=== PATIENT | male | born 1965 | race Caucasian/White ===

== ENCOUNTER 2019-09-07 09:29 | Observation (INO) ==
--- OUTSIDE RECORDS SUMMARY | 2019-09-07 09:36 | External Medical Summary | Continuity of Care Document ---
:1965 Author Name Christiano Lees, Provider Address Unavailable Unavailable , Care Team Providers Name Role Phone Unavailable Unavailable Unavailable Problems Active medical history not documented Allergies and Adverse Reactions Allergy history not documented Medications Medications not documented Procedures Procedures not documented Immunizations Immunizations not documented Plan of Treatment Planned Observations Planned Goals not documented Results No Known Results Results not documented
[2019-09-07 10:56] LABS: Influenza B virus by PCR Neg for Influ B (Neg)
[2019-09-07] MEDS ORDERED: OSELTAMIVIR PHOSPHATE 75 MG CAP PO STA (11:30)
[2019-09-07 11:54] LABS: Basophils # (auto) 0.02 K/uL (0-0.2); Basophils % (auto) 0.3 %; Eosinophils # (auto) 0.08 K/uL (0-0.5); Hematocrit (blood only) 41.1 % (42-52); Hemoglobin 13.9 g/dL (14.0-18.0); Immature Granulocytes # (auto) 0.06 K/uL (0.00-0.02); Immature Granulocytes % (auto) 0.8 %; Lymphocytes # (auto) 0.78 K/uL (1.2-3.4); Lymphocytes % (auto) 10.1 %; Mean Corpuscular Hemoglobin 29.9 pg (25-34); Mean Corpuscular Hgb Conc 33.8 g/dL (32-36); Mean Corpuscular Volume 88.4 fL (80-100); Mean Platelet Volume 11.2 fL (7.4-10.4); Monocytes # (auto) 1.06 K/uL (0.11-0.59); Monocytes % (auto) 13.7 %; Neutrophils # (auto) 5.72 K/uL (1.4-6.5); Neutrophils % (auto) 74.1 %; Platelet Count 196 K/uL (130-400); RDW Coefficient of Variation 13.6 % (11.5-14.5); RDW Standard Deviation 43.8 fL (36.4-46.3); Red Blood Count 4.65 M/uL (4.7-6.1); White Blood Count 7.72 K/uL (4.8-10.8)
--- NOTE | 2019-09-07 12:08 | CT Scan Report ---
HEAD CT NONCONTRAST CT DOSE: 537.48 mGy.cm HISTORY: syncope/head injury eval for bleed TECHNIQUE: Multiaxial CT images of the head were performed without the use of intravenous contrast. A utomated exposure control was utilized for this study. A dose lowering technique was utilized adheri ng to the principles of ALARA. Comparison: None. Findings: The paranasal sinuses and mastoid air cells are clear. The calvarium and skull base are int act. The ventricles and sulci are within normal limits. There is no mass, hematoma, midline shift, or acute infarct. Impression: No acute intracranial abnormality. ACT 112: Negative or not required by law. Electronically signed by: Berny Saeed M.D. 09/07/2019 12:07 PM
[2019-09-07 12:09] LABS: Alanine Aminotransferase 32 U/L (12-78); Albumin Level 3.4 gm/dl (3.4-5.0); Aspartate Aminotransferase 15 U/L (15-37); BUN Creatinine Ratio 13.8 (10-20); Blood Urea Nitrogen 15 mg/dl (7-18); Calcium 8.9 mg/dl (8.5-10.1); Carbon Dioxide 26 mmol/L (21-32); Chloride 107 mmol/L (98-107); Creatinine Clr Calc Pharmacy 96.7 ml/min; Est GFR (African American) 85.6; Est GFR (Non-African American) 73.8; Glucose 101 mg/dl (70-99); Potassium 3.7 mmol/L (3.5-5.1); Sodium 138 mmol/L (136-145)
[2019-09-07 12:11] LABS: Partial Thromboplastin Ratio 0.9; Partial Thromboplastin Time 24.4 Seconds (21.0-31.0); Prothrombin Time 10.5 Seconds (9.0-12.0)
[2019-09-07 12:20] LABS: Albumin Globulin Ratio 0.9 (0.9-2); Alkaline Phosphatase 67 U/L (45-117); Bilirubin,Total 0.3 mg/dl (0.2-1); Globulin 3.7 gm/dl (2.5-4.0); Thyroid Stimulating Hormone 0.377 uIu/ml (0.300-4.500); Total Protein 7.1 gm/dl (6.4-8.2); Troponin I < 0.015 ng/ml (0-0.045)
--- NOTE | 2019-09-07 13:34 | XRay Report ---
XR chest 2V PA/lateral HISTORY: 54 years-old Male ocugh eval for pna acute cough COMPARISON: None available TECHNIQUE: PA and lateral views of the chest FINDINGS: Cardiac silhouette is upper limits of normal in size. No pneumothorax, pleural effusion, focal airspa ce consolidation or overt pulmonary edema. Bones of the chest appear grossly intact. Stimulator leads are noted overlying the mid thoracic spine. IMPRESSION: No acute process. ACT 112: Negative or not required by law. The above report was generated using voice recognition software. It may contain grammatical, syntax o r spelling errors. Electronically signed by: Donato Kennedy M.D. 09/07/2019 1:32 PM
--- NOTE | 2019-09-07 14:52 | History & Physical Report ---
Date of Service September 07, 2019 Assessment & Plan (1) Syncope: -Admit to telemetry -Patient presenting from home for evaluation of syncopal event -Episode was witnessed by , no seizure-like activity reported -Head CT negative for acute findings -Labs unremarkable -Tested positive for influenza A -Suspect likely due to dehydration from influenza A -Initial troponin negative, continue to cycle cardiac enzymes -Supportive care with IVF -Monitor on telemetry -Orthostatic BPs (2) Influenza A: -No signs of pneumonia on CXR -Start Tamiflu -Supportive care with IVF (3) Acute electrocardiogram changes: (4) Bradycardia: -EKG shows an unchanged RBBB with increased conduction delay in leads III and aVF -Initial troponin negative, continue to cycle cardiac enzymes -Follow-up EKG in the morning -Patient had a brief episode of bradycardia in the 30s while having blood work drawn, likely vasovagal response; continue to monitor on telemetry (5) Hypertension: -BP controlled -Continue lisinopril however hold HCTZ due to dehydration and while receiving IVF (6) High cholesterol: -Continue statin and fenofibrate (7) DVT prophylaxis: -SCDs, ambulate History of Present Illness Chief Complaint: Syncope Primary Care Provider: Hai Garrison 54 year old male who presented to the ED for evaluation after having a syncopal event at home. Patient reports that 3 days ago he developed body aches, chills, and cough. He suspected he had a fever however did not take his temperature. Early this morning, patient reports he was sitting on the edge of the couch when he started to feel nauseous. He reports that next thing he knew he woke up on the floor. is at the bedside and witnessed the syncopal event. She reports that he was unconscious for about 1 minute. There is no seizure-like activity reported, no bowel or bladder incontinence or tongue biting. Patient reports his chest has been sore with coughing recently. Denies shortness of breath. No abdominal pain, vomiting, diarrhea. No urinary symptoms. In the ED, patient tested positive for influenza A. While having blood work obtained, patient was noted to have a brief episode of bradycardia in the 30s. Patient had some associated nausea however no syncopal event. Labs are unremarkable. EKG shows chronic RBBB with increased conduction delay in leads III and aVF. Initial troponin is negative. Patient is hemodynamically stable. He was given a dose of oral Tamiflu. Allergies Allergy/AdvReac Type Severity Reaction Status Date / Time No Known Allergies Allergy Unverified 09/07/19 10:33 Home Medications Home Medications Medication Instructions Recorded Confirmed Type aspirin [Aspir-81] 81 mg PO QDD 09/07/19 09/07/19 History atorvastatin 10 mg PO QDD 09/07/19 09/07/19 History cholecalciferol (vitamin D3) 5,000 unit PO QAM 09/07/19 09/07/19 History [Vitamin D3] fenofibrate 54 mg PO QDD 09/07/19 09/07/19 History fluticasone propionate [Flonase 2 spray INTRANASAL DAILY 09/07/19 09/07/19 His tory Allergy Relief] lisinopril-hydrochlorothiazide 1 tab PO QAM 09/07/19 09/07/19 History multivitamin 1 tab PO QAM 09/07/19 09/07/19 History Past Med/Surg History Medical History High cholesterol Hypertension Surgical History No significant past surgical history Family History Father Myocardial infarction Heart disease Social History Preferred Language: [place] Communication Ability: Effective 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 Beliefs That Will Affect Care: None Current Living Situation: Spouse Other Information That Helps Us Care for You: No Feels Safe at Home: Yes Safety Concerns: Feels Safe At This Time Smoking Status: Never smoker Hx Alcohol Use: No Hx Substance Use: No Review of Systems Review of Systems: ROS per HPI, all other systems reviewed and negative Physical Exam Constitutional: WD/WN, vitals as above Eyes: PERRL, conjunctivae normal, anicteric sclerae ENMT: external ear and nose normal, oropharynx normal Respiratory: normal respiratory effort, lungs clear to auscultation Cardiovascular: Rate/Rhythm: regular rate and regular rhythm Vessels: normal peripheral pulses Extremities: no edema Gastrointestinal (Abdomen): normal bowel sounds, soft, nontender, no hepatosplenomegaly Musculoskeletal: no cyanosis or clubbing, extremities motor strength 5/5 Head/Neck/Chest: + head abnormal to inspection (Superficial abrasion noted to right temporal region) Skin: no rashes, warm and dry Neurologic: PERRL, EOMI, accommodation nl, no face palsy, no dysarthria Psychiatric: A+Ox3, euthymic affect Results & Data Vital Signs (Past 12 Hours) Vital Signs Temp Pulse Resp BP Pulse Ox 09/07/19 10:30 84 14 128/71 94 09/07/19 10:14 94 09/07/19 10:00 82 18 136/74 94 09/07/19 09:39 93 H 22 139/100 94 09/07/19 09:37 37 C 90 19 139/100 94 Laboratory Results Short CBC 09/07/19 Range/Units 11:34 WBC 7.72 (4.8-10.8) K/uL Hgb 13.9 L (14.0-18.0) g/dL Hct 41.1 L (42-52) % Plt Count 196 (130-400) K/uL BMP 09/07/19 11:34 Sodium 138 Potassium 3.7 Chloride 107 Carbon Dioxide 26 BUN 15 Creatinine 1.11 Glucose 101 H Calcium 8.9 Cardiac Enzymes 09/07/19 Range/Units 11:34 Troponin I < 0.015 (0-0.045) ng/ml Liver Function 09/07/19 Range/Units 11:34 Total Bilirubin 0.3 (0.2-1) mg/dl AST 15 (15-37) U/L ALT 32 (12-78) U/L Alkaline Phosphatase 67 (45-117) U/L Albumin 3.4 (3.4-5.0) gm/dl Diagnostic Findings CXR IMPRESSION: No acute process. Head CT Impression: No acute intracranial abnormality. Code Status & VTE Plan VTE Prophylaxis Plan VTE Prophylaxis will be ordered: Yes Supervising Physician Co-Signing Physician Notes Pt was seen and examined. Agreed with Daphne HOFFMAN exam, assessment and plan. 54 yo M with PMH of HTN, dyslipidemia who presented to the ED for evaluation after having a syncopal event at home. Pt said that he has been feeling very achy and chills for the past 3 days. said that last night pt was coughing, This morning his cough improves, but felt nauseated; then next thing he found himself on the floor. said that the syncopal episode seems to last 1 minutes. Denies any chest pain, palpitation or SOB before or after the syncopal episode. In the ER influenza type A PCR positive. CT chest showed no acute intracranial abnormality. He recently had a negative stress test 2 months ago. Will monitor closely in tele. If symptoms reoccur, will get additional testing. Continue Tamiflu 75mg BID for 5 days. MD Dory (1) Syncope Syncope type: unspecified Qualified Code(s): R55 - Syncope and collapse
--- NOTE | 2019-09-07 16:31 | Emergency Department Note ---
Entered by Corina Garcia acting as a scribe for History of Present Illness General Chief complaint: Syncope Time Seen by Provider: 09/07/19 09:35 Source: patient and family () History of Present Illness Onset (ago): hour(s) (just prior to arrival) Location: head (general) Pain Consistency: + other (episode) Quality: + other (syncope ) Associated symptoms: + chest pain (tightness), + cough (dry), + nausea/vomiting (positive nausea; negative vomiting ) and + other (positive dizziness; negative seizure activity; positive warmth; negative abdominal pain; negative diarrhea); no diaphoresis, no fever/chills and no shortness of breath The patient is a 54 year old male who presents to the Emergency Room with complaints of an episode of syncope that occurred just prior to arrival. The patient states that he was sitting on the couch when he felt a wave of nausea and dizziness. He states that he remembers asking his for a bucket but does not remember anything after this. Per the patient's , she went to get the p atient a bucket, heard a thump, and found him on the floor with blood on his forehead. The patient's states that the patient fell forward off the couch, hitting his head on the carpeted floor. The patient's states that the patient had loss of consciousness for approximately 1 minute before waking up. The patient's denies seizure activity during this episode. The patient states that he has had a persistent dry cough for 2 days. He states that over the past day he has had chest tightness with this cough, but denies sweating and shortness of breath. The patient states that his last episode of this was this morning but states that this was not during his episode of syncope. The patient states that he felt warm this morning, but denies chills. He denies abdominal pain, vomiting, and diarrhea. The patient states that he took Robitussin, Cefdinir, and 40mg of Prednisone yesterday from his who has had a cough and fever for the past week. The patient states that he has a family history of heart disease, stating that his father had approximately 7 MIs starting in his 50s. The patient reports a personal history of high cholesterol. He denies being on blood thinners. His tetanus is up-to-date. Home Medications Home Medications Medication Instructions Recorded Confirmed Type aspirin [Aspir-81] 81 mg PO QDD 09/07/19 09/07/19 History atorvastatin 10 mg PO QDD 09/07/19 09/07/19 History cholecalciferol (vitamin D3) 5,000 unit PO QAM 09/07/19 09/07/19 History [Vitamin D3] fenofibrate 54 mg PO QDD 09/07/19 09/07/19 History fluticasone propionate [Flonase 2 spray INTRANASAL DAILY 09/07/19 09/07/19 History Allergy Relief] lisinopril-hydrochlorothiazide 1 tab PO QAM 09/07/19 09/07/19 History multivitamin 1 tab PO QAM 09/07/19 09/07/19 History Allergies Allergy/AdvReac Type Severity Reaction Status Date / Time No Known Allergies Allergy Unverified 09/07/19 10:33 Past Med/Surg History Medical History High cholesterol Hypertension Surgical History No significant past surgical history Family History Father Myocardial infarction Heart disease Social History Preferred Language: Malian Communication Ability: Effective [employer]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 and A total of 10 systems reviewed and were otherwise negative Physical Exam Vital Signs Vital Signs - 24 hr 09/07/19 09:37 09/07/19 09:39 09/07/19 09:54 Temperature 37 C Temperature Source Oral Pulse Rate - Lying 91 H Pulse Rate - Sitting 92 H Pulse Rate - Standing 94 H Pulse Rate 90 93 H Pulse Rate from SpO2 Sensor 93 H Pulse Rhythm Regular Pulse Strength Normal Respiratory Rate 19 22 Respiratory Effort / Characteristics Non-Labored Spontaneous Respiratory Depth Normal Respiratory Pattern Regular Blood Pressure - Lying 142/85 H Blood Pressure - Sitting 125/92 Blood Pressure- Standing 139/100 Blood Pressure 139/100 139/100 Blood Pressure Mean 113 106 Blood Pressure Position Standing Pulse Oximetry 94 94 Oxygen Delivery Method Room Air Sepsis Recent Fever Within 48 Hours Yes Sepsis New/Unexplained Change in Mental Status No Sepsis Action Taken by Nursing No Action Required 09/07/19 10:00 09/07/19 10:14 09/07/19 10:30 Temperature Temperature Source Pulse Rate - Lying Pulse Rate - Sitting Pulse Rate - Standing Pulse Rate 82 84 Pulse Rate from SpO2 Sensor 81 83 Pulse Rhythm Pulse Strength Respiratory Rate 18 14 Respiratory Effort / Characteristics Respiratory Depth Respiratory Pattern Blood Pressure - Lying Blood Pressure - Sitting Blood Pressure- Standing Blood Pressure 136/74 128/71 Blood Pressure Mean 104 91 Blood Pressure Position Pulse Oximetry 94 94 94 Oxygen Delivery Method Room Air Sepsis Recent Fever Within 48 Hours Sepsis New/Unexplained Change in Mental Status Sepsis Action Taken by Nursing 09/07/19 11:00 09/07/19 11:20 09/07/19 11:30 Temperature Temperature Source Pulse Rate - Lying Pulse Rate - Sitting Pulse Rate - Standing Pulse Rate 76 68 79 Pulse Rate from SpO2 Sensor 76 68 79 Pulse Rhythm Pulse Strength Respiratory Rate 19 17 18 Respiratory Effort / Characteristics Respiratory Depth Respiratory Pattern Blood Pressure - Lying Blood Pressure - Sitting Blood Pressure- Standing Blood Pressure 128/75 101/66 122/82 Blood Pressure Mean 103 74 89 Blood Pressure Position Pulse Oximetry 94 95 93 Oxygen Delivery Method Sepsis Recent Fever Within 48 Hours Sepsis New/Unexplained Change in Mental Status Sepsis Action Taken by Nursing 09/07/19 12:24 09/07/19 12:30 09/07/19 16:10 Temperature Temperature Source Pulse Rate - Lying Pulse Rate - Sitting Pulse Rate - Standing Pulse Rate 79 82 Pulse Rate from SpO2 Sensor 81 82 Pulse Rhythm Pulse Strength Respiratory Rate 20 19 Respiratory Effort / Characteristics Respiratory Depth Respiratory Pattern Blood Pressure - Lying Blood Pressure - Sitting Blood Pressure- Standing Blood Pressure 135/80 133/79 Blood Pressure Mean 93 91 Blood Pressure Position Pulse Oximetry 96 96 Oxygen Delivery Method Room Air Sepsis Recent Fever Within 48 Hours Sepsis New/Unexplained Change in Mental Status Sepsis Action Taken by Nursing Constitutional: Vital signs reviewed. Head: Abrasion to the right forehead. No bony depression. Eyes: Pupils are equal round reactive to light. Conjunctiva are noninjected. ENT: Pharynx is clear without erythema or exudate. Mucous membranes are moist. No midline tenderness to C spine No carotid bruits. Respiratory: Clear to auscultation bilaterally. Breath sounds are equal bilaterally. Cardiovascular: Regular rate and rhythm. No rubs or gallops. GI: Soft, nondistended and nontender. Bowel sounds are present. Musculoskeletal: No peripheral edema. No lower extremity tenderness. Integumentary: No cyanosis. Neurological: The patient is awake and alert. Cranial nerves II-XII are intact. Motor is 5 out of 5 all extremities. Sensation is intact to light touch all extremities. Normal speech. No pronator drift. No limb ataxia. Psychiatric: Normal affect. Course Course 1004: Past medical records reviewed. The patient was evaluated in room B10. A complete history and physical exam was performed. 1115: The patient's flu swab is positive. 1128: The patient's heart rate dropped down to the 30s. The patient states that they were drawing his blood at this time. 1311: I discussed the case with Daphne HOFFMAN who accepts the patient for further evaluation under Dr. Galindo Hospitalist. Administered Medications Discontinued Medications Oseltamivir Phosphate (Tamiflu) 75 mg PO NOW STA Stop: 09/07/19 11:31 Last Admin: 09/07/19 12:31 Dose: 75 mg Documented by: [id number] Medical Decision Making Differential Diagnosis Differential diagnoses include vasovagal syncope, influenza, ACS, dysrhythmia, metabolic derangement, ICH, and others were considered. Medical Records Attestation: I reviewed the patient's medical records. (No prior visits. ) Home Medications Current Medication List: was personally reviewed by me Laboratory Data Attestation: I reviewed the patient's lab results. Result diagrams: 09/07/19 11:34 09/07/19 11:34 Lab Results 09/07/19 09/07/19 09/07/19 Range/Units 09:51 11:34 11:34 WBC 7.72 (4.8-10.8) K/uL RBC 4.65 L (4.7-6.1) M/uL Hgb 13.9 L (14.0-18.0) g/dL Hct 41.1 L (42-52) % MCV 88.4 (80-100) fL MCH 29.9 (25-34) pg MCHC 33.8 (32-36) g/dL RDW Std Deviation 43.8 (36.4-46.3) fL RDW Coeff of Khalida 13.6 (11.5-14.5) % Plt Count 196 (130-400) K/uL MPV 11.2 H (7.4-10.4) fL Immature Gran % (Auto) 0.8 % Neut % (Auto) 74.1 % Lymph % (Auto) 10.1 % [place] % (Auto) 13.7 % Eos % (Auto) 1.0 % Baso % (Auto) 0.3 % Immature Gran # (Auto) 0.06 H (0.00-0.02) K/uL Neut # (Auto) 5.72 (1.4-6.5) K/uL Lymph # (Auto) 0.78 L (1.2-3.4) K/uL [place] # (Auto) 1.06 H (0.11-0.59) K/uL Eos # (Auto) 0.08 (0-0.5) K/uL Baso # (Auto) 0.02 (0-0.2) K/uL PT (9.0-12.0) Seconds INR (0.9-1.1) APTT (21.0-31.0) Seconds PTT Ratio Sodium 138 (136-145) mmol/L Potassium 3.7 (3.5-5.1) mmol/L Chloride 107 (98-107) mmol/L Carbon Dioxide 26 (21-32) mmol/L Anion Gap 5.0 (3-11) BUN 15 (7-18) mg/dl Creatinine 1.11 (0.6-1.4) mg/dl Est Cr Clr Drug Dosing 96.7 ml/min Est GFR ( Amer) 85.6 Est GFR (Non-Af Amer) 73.8 BUN/Creatinine Ratio 13.8 (10-20) Glucose 101 H (70-99) mg/dl Calcium 8.9 (8.5-10.1) mg/dl Magnesium 2.0 (1.8-2.4) mg/dl Total Bilirubin 0.3 (0.2-1) mg/dl AST 15 (15-37) U/L ALT 32 (12-78) U/L Alkaline Phosphatase 67 (45-117) U/L Troponin I < 0.015 (0-0.045) ng/ml Total Protein 7.1 (6.4-8.2) gm/dl Albumin 3.4 (3.4-5.0) gm/dl Globulin 3.7 (2.5-4.0) gm/dl Albumin/Globulin Ratio 0.9 (0.9-2) TSH 0.377 (0.300-4.500) uIu/ml Hepatitis C Ab Screen (Neg) Influenza Type A (PCR) Pos for Influ A A* (Neg) Influenza Type B (PCR) Neg for Influ B (Neg) 09/07/19 09/07/19 Range/Units 11:34 11:39 WBC (4.8-10.8) K/uL RBC (4.7-6.1) M/uL Hgb (14.0-18.0) g/dL Hct (42-52) % MCV (80-100) fL MCH (25-34) pg MCHC (32-36) g/dL RDW Std Deviation (36.4-46.3) fL RDW Coeff of Khalida (11.5-14.5) % Plt Count (130-400) K/uL MPV (7.4-10.4) fL Immature Gran % (Auto) % Neut % (Auto) % Lymph % (Auto) % [place] % (Auto) % Eos % (Auto) % Baso % (Auto) % Immature Gran # (Auto) (0.00-0.02) K/uL Neut # (Auto) (1.4-6.5) K/uL Lymph # (Auto) (1.2-3.4) K/uL [place] # (Auto) (0.11-0.59) K/uL Eos # (Auto) (0-0.5) K/uL Baso # (Auto) (0-0.2) K/uL PT 10.5 (9.0-12.0) Seconds INR 1.0 (0.9-1.1) APTT 24.4 (21.0-31.0) Seconds PTT Ratio 0.9 Sodium (136-145) mmol/L Potassium (3.5-5.1) mmol/L Chloride (98-107) mmol/L Carbon Dioxide (21-32) mmol/L Anion Gap (3-11) BUN (7-18) mg/dl Creatinine (0.6-1.4) mg/dl Est Cr Clr Drug Dosing ml/min Est GFR ( Amer) Est GFR (Non-Af Amer) BUN/Creatinine Ratio (10-20) Glucose (70-99) mg/dl Calcium (8.5-10.1) mg/dl Magnesium (1.8-2.4) mg/dl Total Bilirubin (0.2-1) mg/dl AST (15-37) U/L ALT (12-78) U/L Alkaline Phosphatase (45-117) U/L Troponin I (0-0.045) ng/ml Total Protein (6.4-8.2) gm/dl Albumin (3.4-5.0) gm/dl Globulin (2.5-4.0) gm/dl Albumin/Globulin Ratio (0.9-2) TSH (0.300-4.500) uIu/ml Hepatitis C Ab Screen Neg (Neg) Influenza Type A (PCR) (Neg) Influenza Type B (PCR) (Neg) Imaging Data Radiologist's Impression: Radiology results as stated below per my review and the radiologist's interpretation: HEAD CT NONCONTRAST CT DOSE: 537.48 mGy.cm HISTORY: syncope/head injury eval for bleed TECHNIQUE: Multiaxial CT images of the head were performed without the use of intravenous contrast. Automated exposure control was utilized for this study. A dose lowering technique was utilized adhering to the principles of ALARA. Comparison: None. Findings: The paranasal sinuses and mastoid air cells are clear. The calvarium and skull base are intact. The ventricles and sulci are within normal limits. There is no mass, hematoma, midline shift, or acute infarct. Impression: No acute intracranial abnormality. ACT 112: Negative or not required by law. Electronically signed by: Berny Saeed M.D. 09/07/2019 12:07 PM XR chest 2V PA/lateral HISTORY: 54 years-old Male ocugh eval for pna acute cough COMPARISON: None available TECHNIQUE: PA and lateral views of the chest FINDINGS: Cardiac silhouette is upper limits of normal in size. No pneumothorax, pleural effusion, focal airspace consolidation or overt pulmonary edema. Bones of the chest appear grossly intact. Stimulator leads are noted overlying the mid thoracic spine. IMPRESSION: No acute process. ACT 112: Negative or not required by law. The above report was generated using voice recognition software. It may contain grammatical, syntax or spelling errors. Electronically signed by: Donato Kennedy M.D. 09/07/2019 1:32 PM ECG Data Attestation: I personally reviewed and interpreted this ECG as follows: Indication: + syncope Rate (beats per minute): 87 Rhythm: + normal sinus ECG Intervals/blocks: + Right Bundle branch block ECG Findings: + Other (QRS 148); no PVCs Comparison ECG Date: from (03/06/19) Change: no significant change Blood Pressure Blood Pressure Findings: Elevated blood pressure Blood Pressure Disposition: Referred to patients primary care provider Head Trauma GCS Score: 15 MDM Narrative I did evaluate the patient as noted above. The patient is presenting after a syncopal episode. The patient apparently became very nauseated and then passed out. He does not recall what happened. His does state he was out for about a minute which seems somewhat prolonged for a vasovagal episode. He is also had flulike symptoms for the past 2 days and his recently was diagnos ed with the flu. He complains of chest tightness but thinks that this is more related to his cough. IV access was established. 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 Cardiac monitoring: Indication: Syncope Rate and rhythm: Sinus rhythm rate in the 80s. Short episode of sinus bra dycardia with a rate in the 30s. I did order and personally review the patient's 12-lead EKG as described above. He has a right bundle branch block which is old when compared to an EKG from the [employer] system. I did order and personally reviewed the images of the patient's chest x-ray as described above. There is no evidence of pneumonia. I did order a rapid flu test. He is positive for influenza A. After discussion with the patient he was treated with Tamiflu 75 mg p.o. I did order and review the patient's blood work as noted in the electronic medical record. CBC is unremarkable without any significant anemia or leukocytosis. Troponin is negative. Electrolytes are unremarkable. I did order a CT of the head. I did review the images myself as well as the radiology report as described above. There is no evidence of acute intracranial hemorrhage. While in the emergency department the monitor Heath alerted me that the patient had an episode of bradycardia. The patient does state that when they were trying to get blood work he did feel lightheaded at 1 point. It is unclear whether this corresponds to the episode of bradycardia. Given his syncopal episode I did recommend we hospitalize him for further cardiac monitoring and evaluation. He was agreeable. I did discuss the case with the hospitalist and case finisher. Impression & Plan Syncope, Bradycardia, Chest pain, Head injury, Influenza A Discharge Plan Visit Data Chief Complaint: Syncope ED Provider: Iron Hyman Discharge Problem: Syncope, Bradycardia, Chest pain, Head injury, Influenza A Patient Disposition: Being Evaluated by Hospitalist Discharge Instructions Interventions: ED Discharge Assessment Last Done: 09/07/19 16:10 Forms Stand Alone Forms: My [facility] [employer] Prescriptions Prescriptions: No Action multivitamin Tablet 1 tab PO QAM RF: 0 atorvastatin 10 mg Tablet 10 mg PO QDD RF: 0 aspirin [Aspir-81] 81 mg Tablet,Delayed Release (Dr/Ec) 81 mg PO QDD RF: 0 lisinopril-hydrochlorothiazide 10-12.5 mg Tablet 1 tab PO QAM RF: 0 fenofibrate 54 mg Tablet 54 mg PO QDD RF: 0 cholecalciferol (vitamin D3) [Vitamin D3] 125 mcg (5,000 unit) Tablet 5,000 unit PO QAM RF: 0 fluticasone propionate [Flonase Allergy Relief] 50 mcg/actuation [place],Suspension 2 spray INTRANASAL DAILY RF: 0 Referrals Referrals: Hai Garrison [Primary Care Provider] - Discharge Problem: Syncope Qualifiers: Syncope type: unspecified Qualified Code(s): R55 - Syncope and collapse The scribe's documentation has been prepared under my direction and personally reviewed by me in its entirety. I confirm that the note above accurately refl ects all work, treatment, procedures, and medical decision making performed by me.
[2019-09-07] MEDS: SODIUM CHLORIDE 0.9% 1000ML 1,000 ML IV SCH (16:49)
[2019-09-07] MEDS: ATORVASTATIN 10 MG TAB PO SCH (17:38)
[2019-09-07] MEDS: ASPIRIN 81 MG ECTAB PO SCH (17:38)
[2019-09-07] MEDS: FENOFIBRATE 54 MG TABLET PO SCH (17:39)
[2019-09-07 19:58] LABS: Appearance Urine Clear (Clear); Bilirubin Urine Negative (Negative); Blood Urine Negative (Negative); Color Urine Yellow; Glucose Urine UA Negative (Negative); Ketones Urine Negative (Negative); Leukocyte Esterase Urine Negative (Negative); Nitrite Urine Negative (Negative); Protein Urine Negative (Negative); Urobilinogen Urine Negative (Negative)
[2019-09-07] MEDS: OSELTAMIVIR PHOSPHATE 75 MG CAP PO SCH (20:35)
[2019-09-07] MEDS: ACETAMINOPHEN 325 MG TAB PO PRN (23:24)
[2019-09-08] MEDS ORDERED: FENOFIBRATE - ORDER AWAITING ACTION SCH
[2019-09-08] MEDS: SODIUM CHLORIDE 0.9% 1000ML 1,000 ML IV SCH ×3 (00:51→17:10)
[2019-09-08 06:11] LABS: Hematocrit (blood only) 39.2 % (42-52); Hemoglobin 13.1 g/dL (14.0-18.0); Mean Corpuscular Hemoglobin 29.4 pg (25-34); Mean Corpuscular Hgb Conc 33.4 g/dL (32-36); Mean Corpuscular Volume 87.9 fL (80-100); Mean Platelet Volume 11.2 fL (7.4-10.4); Platelet Count 181 K/uL (130-400); RDW Standard Deviation 45.2 fL (36.4-46.3); Red Blood Count 4.46 M/uL (4.7-6.1); White Blood Count 6.44 K/uL (4.8-10.8)
[2019-09-08 06:37] LABS: BUN Creatinine Ratio 14.7 (10-20); Calcium 8.5 mg/dl (8.5-10.1); Creatinine Clr Calc Pharmacy 108.1 ml/min; Est GFR (African American) 98.3; Est GFR (Non-African American) 84.8; Potassium 3.4 mmol/L (3.5-5.1)
[2019-09-08] MEDS: MULTIVITAMIN TAB PO SCH (07:41)
[2019-09-08] MEDS: CHOLECALCIFEROL 1,000 UNITS TAB PO SCH (07:41)
[2019-09-08] MEDS: lisinopriL 10 MG TAB PO SCH (07:41)
[2019-09-08] MEDS: OSELTAMIVIR PHOSPHATE 75 MG CAP PO SCH ×2 (07:41→20:49)
[2019-09-08] MEDS ORDERED: POTASSIUM CHLORIDE 20 MEQ TABCR PO STA (07:55)
--- NOTE | 2019-09-08 08:15 | Electrocardiogram Report ---
Test Reason : Blood Pressure : / mmHG Vent. Rate : 087 BPM Atrial Rate : 087 BPM P-R Int : 162 ms QRS Dur : 148 ms QT Int : 362 ms P-R-T Axes : 048 035 003 degrees QTc Int : 435 ms Normal sinus rhythm Right bundle branch block Cannot rule out Inferior infarct , age undetermined Abnormal ECG No previous ECGs available Confirmed by Arben Cortes ([id number]) on 09/07/2019 5:45:45 PM Referred By: Confirmed By:Fer Cortes
--- NOTE | 2019-09-08 12:36 | Ultrasound Report ---
ULTRASOUND OF THE CAROTID ARTERIES CLINICAL HISTORY: Syncope. COMPARISON STUDY: No priors. TECHNIQUE: Real-time, grayscale, and color Doppler sonography of the carotid arteries is performed. I mages are reviewed in the transverse and longitudinal planes. FINDINGS: Blood pressure in the right arm measures 139/79 and blood pressure in the left arm measures 149/83. The carotid arteries are patent bilaterally and demonstrate antegrade flow. There is no significant a therosclerotic plaque identified. Normal doppler arterial waveforms are seen throughout. Velocity lashay surements are listed below. Common carotid peak systolic velocity (cm/sec): RIGHT: 161 LEFT: 108 ICA proximal peak systolic velocity (cm/sec): RIGHT: 77 LEFT: 71 ICA mid peak systolic velocity (cm/sec): RIGHT: 71 LEFT: 70 ICA distal peak systolic velocity (cm/sec): RIGHT: 79 LEFT: 77 ICA/CC peak systolic ratio: RIGHT: 0.5 LEFT: 0.7 Antegrade flow was shown in the vertebral arteries. The external carotid arteries are patent. IMPRESSION: 1. There is no sonographic evidence of hemodynamically significant stenosis in the right or left william tid arterial system. 2. Antegrade flow is shown in the vertebral arteries. ACT 112: Negative or not required by law. Electronically signed by: Sadiq Cool M.D. 09/08/2019 12:35 PM
--- NOTE | 2019-09-08 13:05 | Electroencephalogram ---
EEG Procedure Note Date of Service September 08, 2019 Start / End Times Start Time: 12:16 End Time: 12:36 Referring Physician Dahpne Caraballo PA-C History A 54 year old male with syncope. EEG performed for evaluation of epileptiform activity. Home Medication List Home Medications Medication Instructions Recorded Confirmed Type aspirin [Aspir-81] 81 mg PO QDD 09/07/19 09/07/19 History atorvastatin 10 mg PO QDD 09/07/19 09/07/19 History cholecalciferol (vitamin D3) 5,000 unit PO QAM 09/07/19 09/07/19 History [Vitamin D3] fenofibrate 54 mg PO QDD 09/07/19 09/07/19 History fluticasone propionate [Flonase 2 spray INTRANASAL DAILY 09/07/19 09/07/19 History Allergy Relief] lisinopril-hydrochlorothiazide 1 tab PO QAM 09/07/19 09/07/19 History multivitamin 1 tab PO QAM 09/07/19 09/07/19 History Inpatient Medication List Acetaminophen (Tylenol) 650 mg PO Q4H PRN PRN Reason: Pain or Fever Stop: 10/07/19 16:40 Last Admin: 09/07/19 23:24 Dose: 650 mg Documented by: [id number] Aspirin (Ecotrin Ectab) 81 mg PO QDD [facility] Stop: 10/07/19 16:40 Last Admin: 09/07/19 17:38 Dose: 81 mg Documented by: [id number] Atorvastatin Calcium (Lipitor) 10 mg PO QDD [facility] Stop: 10/07/19 16:40 Last Admin: 09/07/19 17:38 Dose: 10 mg Documented by: [id number] Fenofibrate (Fenofibrate) 1 ea PO QDD [facility] Stop: 10/07/19 17:59 Last Admin: 09/07/19 17:39 Dose: 1 ea Documented by: [id number] Sodium Chloride (Nss 1000ml) 1,000 mls @ 125 mls/hr IV .Q8H [facility] Stop: 10/07/19 16:40 Last Admin: 09/08/19 08:50 Dose: 125 mls/hr Documented by: [id number] Infusion: 09/08/19 08:50 Dose: 125 mls/hr Documented by: [id number] Admin: 09/08/19 00:51 Dose: 125 mls/hr Documented by: [id number] Infusion: 09/08/19 00:49 Dose: 125 mls/hr Documented by: [id number] Admin: 09/07/19 16:49 Dose: 125 mls/hr Documented by: [id number] Lisinopril (Zestril) 10 mg PO [facility] Stop: 10/08/19 08:59 Last Admin: 09/08/19 07:41 Dose: 10 mg Documented by: [id number] Multivitamins (Multivitamin Tab) 1 tab PO [facility] Stop: 10/08/19 08:59 Last Admin: 09/08/19 07:41 Dose: 1 tab Documented by: [id number] Oseltamivir Phosphate (Tamiflu) 75 mg PO BID [facility]; Protocol Stop: 09/12/19 20:59 Last Admin: 09/08/19 07:41 Dose: 75 mg Documented by: [id number] Admin: 09/07/19 20:35 Dose: 75 mg Documented by: [id number] Vitamin D (Vitamin D3) 5,000 units PO [facility] Stop: 10/08/19 08:59 Last Admin: 09/08/19 07:41 Dose: 5,000 units Documented by: [id number] Discontinued Medications Oseltamivir Phosphate (Tamiflu) 75 mg PO NOW STA Stop: 09/07/19 11:31 Last Admin: 09/07/19 12:31 Dose: 75 mg Documented by: [id number] Potassium Chloride (Klor-Con M20) 40 meq PO NOW STA Stop: 09/08/19 07:56 Last Admin: 09/08/19 08:50 Dose: 40 meq Documented by: [id number] Description This is a 21 electrode EEG with a single channel dedicated to limited EKG. The electrodes were placed in accordance with the International 10-20 system. REPORT: At the onset of the EEG, the patient is awake. The background activity consist of 10 Hz, persistent, posteriorly dominant, moderate amplitude, symmetric and rhythmic activity that is reactive to eye opening. Anteriorly, it consist of a mixture of low voltage indeterminate activity and 15-25 Hz, persistent, low amplitude, symmetric and rhythmic activity. Stepwise intermittent photic stimulation does not induce any abnormalities. Drowsiness is characterized by low amplitude mixed frequency activity, roving eye movements, and decreased eye blinking and muscle artifact. IMPRESSION: This is a normal awake and drowsy EEG. There is no evidence of focal slowing or epileptiform activity.
[2019-09-08] MEDS: ACETAMINOPHEN 325 MG TAB PO PRN (14:23)
[2019-09-08] MEDS: ATORVASTATIN 10 MG TAB PO SCH (17:10)
[2019-09-08] MEDS: ASPIRIN 81 MG ECTAB PO SCH (17:10)
--- NOTE | 2019-09-08 17:50 | Hospitalist Progress Note ---
Date of Service September 08, 2019 Assessment & Plan (1) Syncope: Syncope CT head:No acute intracranial abnormality. Carotid USD:There is no sonographic evidence of hemodynamically significant stenosis in the right or left carotid arterial system. EEG:This is a normal awake and drowsy EEG. There is no evidence of focal slowing or epileptiform activity. ECHO: Normal LV size, borderline concentric LVH, EF 60 to 65%. No regional wall motion abnormalities. Mildly dilated RV with normal function. No significant valvular pathology. Normal estimated PA and RA pressures. Telemetry: No issues Negative orthostatics Continue gentle IV fluids Monitor Hypokalemia Check magnesium levels Replete electrolytes as needed (2) Influenza A: CXR:No acute process. 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 (5) Hypertension: Stable Continue lisinopril hold HCTZ for now (6) High cholesterol: Continue statin and fenofibrate (7) DVT prophylaxis: SCDs Encourage to ambulate Subjective Patient is seen and examined at bedside Reports dry cough Dizziness resolved Denies any chest pain, nausea, abdominal pain Offers no new complaints No issues on baler Review of Systems Review of Systems: All systems reviewed & are unremarkable except as noted in HPI & below Physical Exam Physical Exam: Physical Exam: Vitals signs as noted above General Appearance:Moderately built and nourished, no apparent distress Head: normocephalic, traumatic, +forehead tear Eyes: normal inspection, EOMI Neck: supple, Trachea midline Respiratory/Chest: Normal breath sounds, CTA, No accessory muscle use Cardiovascular: S1, S2, No murmur Abdomen/GI:Soft, Non tender, Bowel sounds present Extremities/Musculoskelatal:normal inspection, no edema Neurologic/Psych:AAOX3, grossly no focal neurological deficits Skin: normal color, warm Results & Data Vital Signs (Past 12 Hours) Vital Signs Temp Pulse Resp BP Pulse Ox 09/08/19 16:06 37.0 C 18 09/08/19 07:46 37 C 82 16 134/82 94 Laboratory Results Short CBC 09/08/19 Range/Units 05:45 WBC 6.44 (4.8-10.8) K/uL Hgb 13.1 L (14.0-18.0) g/dL Hct 39.2 L (42-52) % Plt Count 181 (130-400) K/uL BMP 09/08/19 05:45 Sodium 139 Potassium 3.4 L Chloride 109 H Carbon Dioxide 26 BUN 15 Creatinine 0.99 Glucose 93 Calcium 8.5 Cardiac Enzymes 09/07/19 Range/Units 17:09 Troponin I < 0.015 (0-0.045) ng/ml Urine 09/07/19 Range/Units 19:45 Urine Color Yellow Urine Appearance Clear (Clear) Urine pH 6.0 (4.5-7.5) Ur Specific [place] 1.020 (1.000-1.030) Urine Protein Negative (Negative) Urine Glucose (UA) Negative (Negative) (1) Syncope Syncope type: unspecified Qualified Code(s): R55 - Syncope and collapse
[2019-09-08] MEDS: FENOFIBRATE 54 MG TABLET PO SCH (18:07)
[2019-09-09] MEDS: SODIUM CHLORIDE 0.9% 1000ML 1,000 ML IV SCH (06:06)
[2019-09-09 06:49] LABS: Hematocrit (blood only) 40.7 % (42-52); Hemoglobin 13.8 g/dL (14.0-18.0); Mean Corpuscular Hgb Conc 33.9 g/dL (32-36); Mean Corpuscular Volume 88.5 fL (80-100); Mean Platelet Volume 11.2 fL (7.4-10.4); Platelet Count 186 K/uL (130-400); RDW Coefficient of Variation 13.9 % (11.5-14.5); RDW Standard Deviation 44.9 fL (36.4-46.3); White Blood Count 4.65 K/uL (4.8-10.8)
[2019-09-09 07:17] LABS: BUN Creatinine Ratio 12.4 (10-20); Creatinine Clr Calc Pharmacy 95.6 ml/min; Est GFR (Non-African American) 70.7; Magnesium 2.2 mg/dl (1.8-2.4); Potassium 3.7 mmol/L (3.5-5.1)
--- NOTE | 2019-09-09 07:32 | Electrocardiogram Report ---
Test Reason : Blood Pressure : / mmHG Vent. Rate : 070 BPM Atrial Rate : 070 BPM P-R Int : 142 ms QRS Dur : 148 ms QT Int : 392 ms P-R-T Axes : 034 034 004 degrees QTc Int : 423 ms Normal sinus rhythm Right bundle branch block Abnormal ECG When compared with ECG of 07-SEP-2019 09:32, No significant change was found Confirmed by Arben Cortes ([id number]) on 09/09/2019 7:32:05 AM Referred By: REFERRED SELF Confirmed By:Fer Cortes
[2019-09-09] MEDS: MULTIVITAMIN TAB PO SCH (09:13)
[2019-09-09] MEDS: OSELTAMIVIR PHOSPHATE 75 MG CAP PO SCH (09:13)
[2019-09-09] MEDS: lisinopriL 10 MG TAB PO SCH (09:14)
[2019-09-09] MEDS: CHOLECALCIFEROL 1,000 UNITS TAB PO SCH (09:14)
--- NOTE | 2019-09-09 10:07 | Hospitalist Progress Note ---
Date of Service September 09, 2019 Assessment & Plan (1) Syncope: Syncope CT head:No acute intracranial abnormality. Carotid USD:There is no sonographic evidence of hemodynamically significant stenosis in the right or left carotid arterial system. EEG:This is a normal awake and drowsy EEG. There is no evidence of focal slowing or epileptiform activity. ECHO: Normal LV size, borderline concentric LVH, EF 60 to 65%. No regional wall motion abnormalities. Mildly dilated RV with normal function. No significant valvular pathology. Normal estimated PA and RA pressures. Telemetry: Transient bradycardia overnight ( 2 second pause) Negative orthostatics Received IV fluids Monitor Advised to follow up with Cardiology as outpatient for possible ZIO patch monitor Hypokalemia Normal magnesium levels Resolved Replete electrolytes as needed (2) Influenza A: CXR:No acute process. 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 Advised to follow up with Cardiology as outpatient (5) Hypertension: Stable Continue lisinopril hold HCTZ for now (6) High cholesterol: Continue statin and fenofibrate (7) DVT prophylaxis: SCDs Encourage to ambulate Subjective Patient is seen and examined at bedside Cough is much improved Denies any recurrence of dizziness Denies any chest pain, nausea, abdominal pain Family at bedside Transient bradycardia noted on Tele Review of Systems Review of Systems: All systems reviewed & are unremarkable except as noted in HPI & below Physical Exam Physical Exam: Physical Exam: Vitals signs as noted above General Appearance:Moderately built and nourished, no apparent distress Head: normocephalic, traumatic, +forehead tear Eyes: normal inspection, EOMI Neck: supple, Trachea midline Respiratory/Chest: Normal breath sounds, CTA, No accessory muscle use Cardiovascular: S1, S2, No murmur Abdomen/GI:Soft, Non tender, Bowel sounds present Extremities/Musculoskelatal:normal inspection, no edema Neurologic/Psych:AAOX3, grossly no focal neurological deficits Skin: normal color, warm Results & Data Vital Signs (Past 12 Hours) Vital Signs Temp Pulse Pulse Resp BP Pulse Ox 09/09/19 07:19 36.8 C 65 18 129/90 95 09/09/19 02:49 37 C 73 16 126/71 95 09/08/19 23:15 36.5 C 68 16 125/89 95 09/08/19 22:07 75 16 95 Laboratory Results Short CBC 09/09/19 Range/Units 06:22 WBC 4.65 L (4.8-10.8) K/uL Hgb 13.8 L (14.0-18.0) g/dL Hct 40.7 L (42-52) % Plt Count 186 (130-400) K/uL BMP 09/09/19 06:22 Sodium 140 Potassium 3.7 Chloride 109 H Carbon Dioxide 27 BUN 14 Creatinine 1.15 Glucose 92 Calcium 9.0 (1) Syncope Syncope type: unspecified Qualified Code(s): R55 - Syncope and collapse
--- NOTE | 2019-09-09 10:15 | Discharge Summary ---
Date of Service September 09, 2019 Admission HPI Per Admitting Provider 54 year old male who presented to the ED for evaluation after having a syncopal event at home. Patient reports that 3 days ago he developed body aches, chills, and cough. He suspected he had a fever however did not take his temperature. Early this morning, patient reports he was sitting on the edge of the couch when he started to feel nauseous. He reports that next thing he knew he woke up on the floor. is at the bedside and witnessed the syncopal event. She reports that he was unconscious for about 1 minute. There is no seizure-like activity reported, no bowel or bladder incontinence or tongue biting. Patient reports his chest has been sore with coughing recently. Denies shortness of breath. No abdominal pain, vomiting, diarrhea. No urinary symptoms. In the ED, patient tested positive for influenza A. While having blood work obtained, patient was noted to have a brief episode of bradycardia in the 30s. Patient had some associated nausea however no syncopal event. Labs are unremarkable. EKG shows chronic RBBB with increased conduction delay in leads III and aVF. Initial troponin is negative. Patient is hemodynamically stable. He was given a dose of oral Tamiflu. Admission Exam Per Admitting Provider Physical Exam Constitutional: WD/WN, vitals as above Eyes: PERRL, conjunctivae normal, anicteric sclerae ENMT: external ear and nose normal, oropharynx normal Respiratory: normal respiratory effort, lungs clear to auscultation Cardiovascular: Rate/Rhythm: regular rate and regular rhythm Vessels: normal peripheral pulses Extremities: no edema Gastrointestinal (Abdomen): normal bowel sounds, soft, nontender, no hepatosplenomegaly Musculoskeletal: no cyanosis or clubbing, extremities motor strength 5/5 Head/Neck/Chest: + head abnormal to inspection (Superficial abrasion noted to right temporal region) Skin: no rashes, warm and dry Neurologic: PERRL, EOMI, accommodation nl, no face palsy, no dysarthria Psychiatric: A+Ox3, euthymic affect Principal Diagnosis Syncope Influenza A Discharge Data Allergies Allergy/AdvReac Type Severity Reaction Status Date / Time No Known Allergies Allergy Unverified 09/07/19 10:33 Consultations 09/07/19 13:11 ED Decision to Admit Stat Procedures Performed CT head:No acute intracranial abnormality. Carotid USD:There is no sonographic evidence of hemodynamically significant stenosis in the right or left carotid arterial system. EEG:This is a normal awake and drowsy EEG. There is no evidence of focal slowing or epileptiform activity. ECHO: Normal LV size, borderline concentric LVH, EF 60 to 65%. No regional wall motion abnormalities. Mildly dilated RV with normal function. No significant valvular pathology. Normal estimated PA and RA pressures. Ordered Studies 09/07/19 10:15 CT head/brain wo con Stat 09/08/19 10:28 US carotid doppler BI Routine Hospital Course (1) Syncope: Syncope CT head:No acute intracranial abnormality. Carotid USD:There is no sonographic evidence of hemodynamically significant stenosis in the right or left carotid arterial system. EEG:This is a normal awake and drowsy EEG. There is no evidence of focal slowing or epileptiform activity. ECHO: Normal LV size, borderline concentric LVH, EF 60 to 65%. No regional wall motion abnormalities. Mildly dilated RV with normal function. No significant v alvular pathology. Normal estimated PA and RA pressures. Telemetry: Transient bradycardia overnight ( 2 second pause) Negative orthostatics Received IV fluids Monitor Advised to follow up with Cardiology as outpatient for possible ZIO patch monitor Hypokalemia Normal magnesium levels Resolved Replete electrolytes as needed (2) Influenza A: CXR:No acute process. 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 pauses on manager summer Advised to follow up with Cardiology as outpatient (5) Hypertension: Stable Continue lisinopril hold HCTZ for now (6) High cholesterol: Continue statin and fenofibrate (7) DVT prophylaxis: SCDs Encourage to ambulate Total Time Total Time Spent Total Time Spent (In Minutes): 38 minutes Total Time Includes: Examination of the Patient, Discharge Planning, Medication Reconciliation, Communication With Other Providers and Other Discharge Plan Discharge Items Patient Disposition: Home - Self-Care Reason For Visit: SYNCOPE, FLU A Discharge Diagnosis: Syncope Influenza A Activity: Resume your previous activity Exercise/Sports: Gradually increase as tolerated Non-emergency contact: Primary Care Provider Call non-emergency contact if: you have any medication questions, your symptoms worsen, your pain is not controlled, your pain is worsening, your pain is unusual for you, your pain is concerning for you and you have a fever Follow-up/Referrals: Hai Garrison [Primary Care Provider] - Diet: Heart Healthy Addtl Attending Provider Instructions: Follow up with your PCP in 1 week as advised Follow up with your Pipe Insulator Helper as advised Complete the Oseltamivir course as prescribed Seek immediate medical attention if your symptoms reoccur or worsen Pending Studies at Discharge: No Stand-Alone Forms: My [facility], Smoking Cessation Medications and DC Order Prescriptions: New oseltamivir [Tamiflu] 75 mg Capsule 75 mg PO BID Qty: 6 RF: 0 Continued multivitamin Tablet 1 tab PO QAM RF: 0 atorvastatin 10 mg Tablet 10 mg PO QDD RF: 0 aspirin [Aspir-81] 81 mg Tablet,Delayed Release (Dr/Ec) 81 mg PO QDD RF: 0 lisinopril-hydrochlorothiazide 10-12.5 mg Tablet 1 tab PO QAM RF: 0 fenofibrate 54 mg Tablet 54 mg PO QDD RF: 0 cholecalciferol (vitamin D3) [Vitamin D3] 125 mcg (5,000 unit) Tablet 5,000 unit PO QAM RF: 0 fluticasone propionate [Flonase Allergy Relief] 50 mcg/actuation [place],Suspension 2 spray INTRANASAL DAILY RF: 0 Discharge Orders: Discharge Order (Routine); Ordered 09/09/19 Ordered By: Hiren Perry Admission Data Admit Date/Time: 09/08/19 10:30 Attending Provider: Hiren Perry Admit Provider: Archana Connors Primary Care Provider: Hai Garrison Other Providers: Archana Connors Other Interventions: Discharge Summary Assessment (RN) Last Done: 09/09/19 10:35 DC Date/Time DO NOT enter until pt leaves facility: 09/09/19 12:10
--- NOTE | 2019-09-09 12:59 | Electrocardiogram Report ---
Test Reason : Blood Pressure : / mmHG Vent. Rate : 063 BPM Atrial Rate : 063 BPM P-R Int : 142 ms QRS Dur : 078 ms QT Int : 418 ms P-R-T Axes : 038 022 003 degrees QTc Int : 427 ms Normal sinus rhythm Low voltage QRS Right bundle branch block Abnormal ECG When compared with ECG of 08-SEP-2019 07:00, No significant change Confirmed by Ever Butler ([id number]) on 09/09/2019 12:59:35 PM Referred By: REFERRED SELF Confirmed By:Ever Butler
== END 2019-09-09 12:10 | disposition home or self-care (01) ==
LOC: ED 09:29 → 2E 09:29 → SUATTDRO 14:10 → 2E 16:10

== ENCOUNTER 2024-08-09 18:38 | Inpatient (IN) ==
--- NOTE | 2024-08-09 18:49 | Emergency Department Note ---
Impression & Plan Chest pain, AV junctional bradycardia, Near syncope ED Provider Note NAME: NIKHIL MARTINEZ AGE: 59 SEX: M : 1965 ARRIVES VIA: Ambulance INFORMANT: Patient, ED PROVIDER(S): Ever Sullivan DO CHIEF COMPLAINT: Chest pain HPI: The patient is a 59-year-old male who presented to the emergency department for an evaluation of chest pain. The patient describes right-sided chest pain that seems to go into his right upper back. He denies having any vomiting. He felt very hot at the time and thought he might be sweating. The pain did calm down but then returned again this evening. The patient called 911. He did take 4 baby aspirin prior to arrival. The patient denies having any abdominal pain. He denies having any lower extremity swelling or leg pain. The patient has no history of coronary artery disease. ROS: See above HPI for pertinent positives & negatives. A total of 10 systems reviewed and were otherwise negative. PAST MEDICAL HISTORY: See Below PAST SURGICAL HISTORY: See Below FAMILY HISTORY: See Below SOCIAL HISTORY: See Below HOME MEDICATIONS: See Below ALLERGIES: See Below VITALS: See Below PHYSICAL EXAMINATION: GENERAL: Patient is awake alert in no acute distress patient is resting comfortably and showing no signs of anxiety EYES: The conjunctivae are clear. The pupils are round and reactive. EARS, NOSE, MOUTH AND THROAT: The nose is without any evidence of any deformity. NECK: The neck is nontender and supple. RESPIRATORY: Normal respiratory effort is noted there is no evidence of wheezing rhonchi or rales CARDIOVASCULAR: Regular rate and rhythm noted there no murmurs rubs or gallops normal S1 normal S2. GASTROINTESTINAL: The abdomen is soft. Abdomen is nontender. MUSCULOSKELETAL/EXTREMITIES: There is no evidence of gross deformity full range of motion is noted in the hips and shoulders. SKIN: There is no obvious evidence of any rash. There are no petechiae, pallor or cyanosis noted. NEUROLOGIC: Patient is awake alert and oriented x3 MEDICAL DECISION MAKING: The patient is a 59-year-old male who presented to the emergency department for an evaluation of chest pain. The patient noticed right sided chest pain as well as upper back pain. The patient states he was very diaphoretic and felt dizzy when this episode occurred earlier. He called the ambulance to come to the emergency department when he had return of symptoms. The patient's EKG did show a bundle branch block which does not appear to be new. The patient was well- appearing and took aspirin prior to arrival. He was treated with some pain medication in the emergency department. I was called to the room because the patient started having bradycardia and dizziness. The patient was found to be in junctional bradycardia. He was treated with atropine in the emergency department. Blood pressure was low but he was placed in Trendelenburg and given IV fluids. He was feeling much better on reevaluation. I discussed patient's laboratory and radiographic studies with him. I discussed his condition with the on-call [facility] hospitalist as well as the on-call [facility] breaker operator. Triage Nursing notes reviewed. Prior medical records reviewed Vital Signs: reviewed and remarkable for no significant abnormalities Differential diagnosis: Cardiac ischemia, aortic dissection, pulmonary embolism, pneumothorax, pneumonia, pericarditis, myocarditis, esophageal rupture, GERD, cholecystitis, pancreatitis, musculoskeletal, as well as other pathologies. ER treatment provided: See below Diagnostics interpreted by me: ECG: EKG was obtained in the emergency department. My interpretation is normal sinus rhythm at 87 bpm. There was no PVCs noted. Right bundle-branch block pattern was noted. This was compared to a tracing from September 09, 2019. There was a slight right bundle branch block pattern at that time but the QRS duration has increased since the previous EKG. A second EKG was obtained because the patient became symptomatic diaphoretic and had near syncope. My interpretation is junctional rhythm at 38 bpm. No PVCs were noted. A similar QRS complex was noted which was right bundle branch block. Cardiac Monitoring: An order was placed for continuous cardiac monitoring. The monitor shows a rate of 80 bpm with sinus rhythm. Laboratory studies: As stated above and show below. Imaging studies: See below. Radiographic imaging was reviewed by myself Consultation(s): I discussed this case with Dr. Gordon who is on-call for the [facility] hospitalist group. I discussed this case with Dr. Ovalle who is on-call for the [facility] cardiology group. ED COURSE: Procedures: none Critical Care: I have personally spent greater than 45 minutes of critical care time in the direct management of this patient. This includes bedside care, interpretation of diagnostic studies, and testing, discussion with consultants, patient, and family members, and other required patient management activities. This 45 minutes is in excess of all separately billable procedures. Past Med/Surg History Problem List (Updated 08/09/24 @ 22:45 by Ever Sullivan DO) Near syncope (Acute) AV junctional bradycardia (Acute) Chest pain (Acute) Chest pain High cholesterol Hypertension Syncope (Acute) Bradycardia (Acute) Influenza A (Acute) Surgical History No significant past surgical history Family History Father Myocardial infarction Heart disease Social History Smoking Status: Never smoker Hx Alcohol Use: No Hx Substance Use: No Preferred Language: [place]al[place] Communication Ability: Effective Web Systems Developer Required: No Beliefs That Will Affect Care: None Current Living Situation: Spouse Feels Safe at Home: Yes Assistive Devices: None Allergies Allergies Allergy/AdvReac Type Severity Reaction Status Date / Time No Known Allergies Allergy Unverified 09/07/19 10:33 Home Meds Home Medications Medication Instructions Recorded Confirmed aspirin 81 mg tablet,delayed 81 mg PO DAILY 08/09/24 08/09/24 release atorvastatin 20 mg tablet 20 mg PO HS 08/09/24 08/09/24 fenofibrate 54 mg tablet 54 mg PO DAILY 08/09/24 08/09/24 lisinopril 10 1 tab PO DAILY 08/09/24 08/09/24 mg-hydrochlorothiazide 12.5 mg tablet Results & Data (ED) Vital Signs Vital Signs - 24 hr 08/09/24 18:45 08/09/24 18:45 08/09/24 19:02 Temperature 36.8 C Temperature Source Skin Pulse Rate 79 Pulse Rate from SpO2 Sensor Respiratory Rate 18 Blood Pressure 170/105 H Blood Pressure Mean 126 Pulse Oximetry 98 98 98 Oxygen Delivery Method Room Air Room Air Room Air Oxygen Flow Rate Sepsis Recent Fever Within 48 Hours No Sepsis New/Unexplained Change in Mental Status No Sepsis Action Taken by Nursing No Action Required Oxygen Flow Rate - Titration Pulse Oximetry Post Tiitration 08/09/24 19:06 08/09/24 19:44 08/09/24 19:48 Temperature Temperature Source Pulse Rate 80 76 Pulse Rate from SpO2 Sensor 77 Respiratory Rate 17 Blood Pressure Blood Pressure Mean Pulse Oximetry 92 95 Oxygen Delivery Method Room Air Nasal Cannula Oxygen Flow Rate 0 1 Sepsis Recent Fever Within 48 Hours Sepsis New/Unexplained Change in Mental Status Sepsis Action Taken by Nursing Oxygen Flow Rate - Titration 1 Pulse Oximetry Post Tiitration 93 08/09/24 19:50 08/09/24 20:00 08/09/24 20:10 Temperature Temperature Source Pulse Rate 82 80 Pulse Rate from SpO2 Sensor 81 Respiratory Rate 18 20 Blood Pressure 145/86 H 142/89 H 151/89 H Blood Pressure Mean 98 106 105 Pulse Oximetry 95 96 Oxygen Delivery Method Room Air Nasal Cannula Oxygen Flow Rate 1 Sepsis Recent Fever Within 48 Hours Sepsis New/Unexplained Change in Mental Status Sepsis Action Taken by Nursing Oxygen Flow Rate - Titration Pulse Oximetry Post Tiitration 08/09/24 20:15 08/09/24 20:20 08/09/24 20:30 Temperature Temperature Source Pulse Rate 78 84 86 Pulse Rate from SpO2 Sensor 77 Respiratory Rate 16 18 18 Blood Pressure 141/86 H 148/94 H 135/96 Blood Pressure Mean 104 109 100 Pulse Oximetry 95 95 96 Oxygen Delivery Method Nasal Cannula Nasal Cannula Nasal Cannula Oxygen Flow Rate 1 1 1 Sepsis Recent Fever Within 48 Hours Sepsis New/Unexplained Change in Mental Status Sepsis Action Taken by Nursing Oxygen Flow Rate - Titration Pulse Oximetry Post Tiitration 08/09/24 20:40 08/09/24 20:55 08/09/24 21:00 Temperature Temperature Source Pulse Rate 81 81 82 Pulse Rate from SpO2 Sensor Respiratory Rate 18 18 20 Blood Pressure 145/92 H 138/89 140/89 Blood Pressure Mean 107 104 106 Pulse Oximetry 95 94 94 Oxygen Delivery Method Nasal Cannula Nasal Cannula Oxygen Flow Rate 1 1 Sepsis Recent Fever Within 48 Hours Sepsis New/Unexplained Change in Mental Status Sepsis Action Taken by Nursing Oxygen Flow Rate - Titration Pulse Oximetry Post Tiitration 08/09/24 21:10 Temperature Temperature Source Pulse Rate 80 Pulse Rate from SpO2 Sensor Respiratory Rate 18 Blood Pressure 136/83 Blood Pressure Mean 99 Pulse Oximetry 94 Oxygen Delivery Method Nasal Cannula Oxygen Flow Rate 1 Sepsis Recent Fever Within 48 Hours Sepsis New/Unexplained Change in Mental Status Sepsis Action Taken by Nursing Oxygen Flow Rate - Titration Pulse Oximetry Post Tiitration Home Medications Current Medication List: was personally reviewed by me Laboratory Data Attestation: I reviewed the patient's lab results. 08/09/24 18:45 08/09/24 18:45 Lab Results 08/09/24 08/09/24 Range/Units 18:45 21:16 WBC 10.85 H (4.8-10.8) K/ul RBC 4.99 (4.70-6.10) M/uL Hgb 15.4 (14.0-18.0) g/dl Hct 43.3 (42.0-52.0) % MCV 86.8 (80.0-100.0) fL MCH 30.9 (25.0-34.0) pg MCHC 35.6 (32.0-36.0) g/dL RDW Std Deviation 40.2 (36.4-46.3) fL RDW Coeff of Khalida 12.8 (11.5-14.5) % Plt Count 216 (130-400) K/uL MPV 11.4 (9.4-12.4) fL Immature Gran % (Auto) 0.5 % Neut % (Auto) 79.5 % Lymph % (Auto) 12.0 % [place] % (Auto) 6.3 % Eos % (Auto) 1.3 % Baso % (Auto) 0.4 % Neut # (Auto) 8.64 H (1.40-6.50) K/uL Lymph # (Auto) 1.30 (1.20-3.40) K/uL [place] # (Auto) 0.68 H (0.11-0.59) K/uL Eos # (Auto) 0.14 (0.00-0.50) K/uL Baso # (Auto) 0.04 (0.00-0.20) K/uL Immature Gran # (Auto) 0.05 (0.01-0.20) K/uL PT 10.8 (9.0-12.0) Seconds INR 1.0 (0.9-1.1) APTT 26 (21-31) Seconds PTT Ratio 1.0 D-Dimer 320 (0-500) ug/L FEU Sodium 137 (136-145) mmol/L Potassium 3.6 (3.5-5.1) mmol/L Chloride 104 (98-107) mmol/L Carbon Dioxide 26 (21-32) mmol/L Anion Gap 7 (3-11) BUN 23 (6-23) mg/dl Creatinine 1.26 (0.6-1.4) mg/dl Est Cr Clr Drug Dosing 82.0 ml/min eGFR 64.89 BUN/Creatinine Ratio 18.3 (10-20) Glucose 103 H (70-99(Fasting)) mg/dl Calcium 9.3 (8.6-10.3) mg/dl Total Bilirubin 0.4 (0.2-1.0) mg/dl AST 19 (13-39) U/L ALT 21 (7-52) U/L Alkaline Phosphatase 52 (34-104) U/L Troponin I High Sens 5.5 3.2 (0-20) pg/ml Total Protein 7.1 (6.0-8.3) gm/dl Albumin 4.4 (3.4-5.0) gm/dl Globulin 2.7 (2.5-4.0) gm/dl Albumin/Globulin Ratio 1.6 (0.9-2) Lipase 19 (11-82) U/L Lyme Disease Screen Negative (Negative) Administered Medications Discontinued Medications Atropine Sulfate (Atropine So4 1 Mg/Ml 1ml Vial) Confirm Administered Dose 1 mg .ROUTE .STK-MED ONE Stop: 08/09/24 19:35 Last Admin: 08/09/24 19:35 Dose: 0.5 mg Documented By: LIVIER Heparin Sodium/Dextrose (Heparin Iv Adult Wt-Based Low-Dose *No* Initial Bolus Protocol) 1 each IV ONE STA; Protocol Stop: 08/09/24 19:44 Last Admin: 08/09/24 19:52 Dose: 1 each Documented By: HARMONY Sodium Chloride (Nss) 500 mls @ 999 mls/hr IV .Q31M ONE Stop: 08/09/24 20:12 Last Infusion: 08/09/24 20:52 Dose: Infused Documented By: Admin: 08/09/24 19:57 Dose: 999 mls/hr Documented By: CHAYO Morphine Sulfate (Morphine Sulfate 4 Mg/Ml 1 Ml Carp\Vial) 4 mg IV NOW STA Stop: 08/09/24 18:47 Last Admin: 08/09/24 19:07 Dose: 4 mg Documented By: CHAYO Ondansetron HCl (Ondansetron Inj 2 Mg/Ml 2 Ml Vial) 4 mg IV NOW STA Stop: 08/09/24 18:47 Last Admin: 08/09/24 19:07 Dose: 4 mg Documented By: CHAYO Imaging Data Attestation: I personally reviewed and interpreted this imaging study as follows: My Impression: 1 view chest x-ray was obtained in the emergency department. My interpretation is no free air or signs of infiltrate, final report below. Radiologist's Impression: Chest X-Ray 08/09/24 18:46 Exam(s): XR CXR 1 VIEW EXAM: XR Chest, 1 View CLINICAL HISTORY: Reason for exam: Chest pain, nonspecific. TECHNIQUE: Frontal view of the chest. COMPARISON: September 07, 2019 FINDINGS: Lungs: Small amount of left lung base subsegmental atelectasis. The lungs are otherwise clear. Pleural space: Unremarkable. No pneumothorax. Heart: Unremarkable. No cardiomegaly. Mediastinum: Unremarkable. Normal mediastinal contour. Bones/joints: Mild osteophytosis throughout the mid to lower thoracic spine. No acute fracture. Tubes, lines and devices: There is a spinal stimulating lead in place. Upper abdomen: There is no pneumoperitoneum under the diaphragm. IMPRESSION: Small amount of left lung base subsegmental atelectasis. The lungs are otherwise clear. Electronically signed by: Nilay Lugo MD 08/09/24 21:02 PM Discharge Plan Visit Data Chief Complaint: Chest Pain Stated Complaint: CHEST PAIN ED Provider: Ever Sullivan Discharge Problem: Chest pain, AV junctional bradycardia, Near syncope Patient Disposition: Being Evaluated by Hospitalist Forms Stand Alone Forms: [facility] Prescriptions Prescriptions: No Action atorvastatin 20 mg tablet 20 mg PO HS lisinopril-hydrochlorothiazide 10-12.5 mg tablet 1 tab PO DAILY fenofibrate 54 mg tablet 54 mg PO DAILY aspirin 81 mg Tablet,Delayed Release (Dr/Ec) 81 mg PO DAILY Referrals Referrals: Hai Garrison [Primary Care Provider] - Discharge Problem: Chest pain Qualifiers: Chest pain type: unspecified Qualified Code(s): R07.9 - Chest pain, unspecified
[2024-08-09 19:05] LABS: Basophils # (auto) 0.04 K/uL (0.00-0.20); Basophils % (auto) 0.4 %; Eosinophils # (auto) 0.14 K/uL (0.00-0.50); Eosinophils % (auto) 1.3 %; Hematocrit (blood only) 43.3 % (42.0-52.0); Hemoglobin 15.4 g/dl (14.0-18.0); Immature Granulocytes # (auto) 0.05 K/uL (0.01-0.20); Immature Granulocytes % (auto) 0.5 %; Mean Corpuscular Hemoglobin 30.9 pg (25.0-34.0); Mean Corpuscular Hgb Conc 35.6 g/dL (32.0-36.0); Mean Corpuscular Volume 86.8 fL (80.0-100.0); Mean Platelet Volume 11.4 fL (9.4-12.4); Monocytes # (auto) 0.68 K/uL (0.11-0.59); Monocytes % (auto) 6.3 %; Neutrophils # (auto) 8.64 K/uL (1.40-6.50); Neutrophils % (auto) 79.5 %; Platelet Count 216 K/uL (130-400); RDW Coefficient of Variation 12.8 % (11.5-14.5); RDW Standard Deviation 40.2 fL (36.4-46.3); Red Blood Count 4.99 M/uL (4.70-6.10); White Blood Count 10.85 K/ul (4.8-10.8)
[2024-08-09] MEDS: MoRPHine SULFATE 4 MG/ML 1 ML CARP\\VIAL IV STA (19:07)
[2024-08-09] MEDS: ONDANSETRON INJ 2 MG/ML 2 ML VIAL IV STA (19:07)
[2024-08-09 19:23] LABS: Albumin Globulin Ratio 1.6 (0.9-2); Albumin Level 4.4 gm/dl (3.4-5.0); BUN Creatinine Ratio 18.3 (10-20); Bilirubin,Total 0.4 mg/dl (0.2-1.0); Calcium 9.3 mg/dl (8.6-10.3); Globulin 2.7 gm/dl (2.5-4.0); Potassium 3.6 mmol/L (3.5-5.1); Total Protein 7.1 gm/dl (6.0-8.3)
[2024-08-09 19:29] LABS: Troponin I High Sensitivity 5.5 pg/ml (0-20)
[2024-08-09] MEDS: ATROPINE SO4 1 MG/ML 1ML VIAL ONE (19:35)
[2024-08-09 19:45] LABS: D Dimer 320 ug/L FEU (0-500); Partial Thromboplastin Time 26 Seconds (21-31); Prothrombin Time 10.8 Seconds (9.0-12.0)
[2024-08-09] MEDS: Heparin IV Adult Wt-Based Low-Dose *NO* INITIAL Bolus Protocol IV STA (19:52)
[2024-08-09] MEDS: SODIUM CHLORIDE 0.9% 500 ML IV ONE (19:57)
[2024-08-09] MEDS ORDERED: HEPARIN SODIUM/DEXTROSE 25,000 UNITS/500 ML BAG IV SCH (20:00)
--- NOTE | 2024-08-09 21:03 | XRay Report ---
Exam(s): XR CXR 1 VIEW EXAM: XR Chest, 1 View CLINICAL HISTORY: Reason for exam: Chest pain, nonspecific. TECHNIQUE: Frontal view of the chest. COMPARISON: September 07, 2019 FINDINGS: Lungs: Small amount of left lung base subsegmental atelectasis. The lungs are otherwise clear. Pleural space: Unremarkable. No pneumothorax. Heart: Unremarkable. No cardiomegaly. Mediastinum: Unremarkable. Normal mediastinal contour. Bones/joints: Mild osteophytosis throughout the mid to lower thoracic spine. No acute fracture. Tubes, lines and devices: There is a spinal stimulating lead in place. Upper abdomen: There is no pneumoperitoneum under the diaphragm. IMPRESSION: Small amount of left lung base subsegmental atelectasis. The lungs are otherwise clear. Electronically signed by: Nilay Lugo MD 08/09/24 21:02 PM
--- NOTE | 2024-08-09 21:15 | History & Physical Report ---
Date of Service August 09, 2024 Assessment & Plan (1) Chest pain: Plan: 59-year-old male with past medical history significant for hypertension hyperlipidemia presents with right-sided chest pain and near syncope. Patient initially noticed pain in the back of his right side. Initially thought it was a muscle pain. But the pain moved to the front part of the right side of the chest. It was 5/10 in severity. And he felt hot and thought he was sweating an d felt like passing out when he called EMS and came to the hospital. Prior to coming to the hospital took 4 baby aspirin's. In the ER also had episode where he became diaphoretic and felt like passing out and he was having bradycardia. Er gave atropine.. Currently resting comfortably. Patient's pain is improved currently. Denies any headache. During the episode felt dizziness. Vision is okay. No headache or runny nose currently. No sore throat. No difficulty swallowing. Eating and drinking okay. Currently no nausea. No abdominal pain. Normal bowel and bladder movements. Micturating okay. Otherwise ambulating okay. Hemodynamics okay currently. He has CPAP and uses it daily while sleeping per patient. Chest pain Right-sided chest pain Initial troponin negative D-dimer negative Will follow serial cardiac enzymes and echo Monitor on telemetry Continue home aspirin Cardiology consult in a.m. for further recommendations Bradycardia Near syncope junctional bradycardia with near syncope in Er. Received atropine Currently heart rates ok and hemodynamics ok. troponin two sets ok, D dimer negative.Lyme screen negative Closely monitoring telemetry Echo Cardiology consulted in a.m. for further recommendations Hypertension Lisinopril hydrochlorothiazide Will monitor Hyperlipidemia On atorvastatin and fenofibrate Will follow lipid profile given Sleep apnea on cpap q hs DVT prophylaxis SCDs for now Disposition Telemetry Full code. History of Present Illness Chief Complaint: Chest pain and near syncope Primary Care Provider: Hai Garrison 59-year-old male with past medical history significant for hypertension hyperlipidemia presents with right-sided chest pain and near syncope. Patient initially noticed pain in the back of his right side. Initially thought it was a muscle pain. But the pain moved to the front part of the right side of the chest. It was 5/10 in severity. And he felt hot and thought he was sweating and felt like passing out when he called EMS and came to the hospital. Prior to coming to the hospital took 4 baby aspirin's. In the ER also had episode where he became diaphoretic and felt like passing out and he was having bradycardia. Er gave atropine.. Currently resting comfortably. Patient's pain is improved currently. Denies any headache. During the episode felt dizziness. Vision is okay. No headache or runny nose currently. No sore throat. No difficulty swallowing. Eating and drinking okay. Currently no nausea. No abdominal pain. Normal bowel and bladder movements. Micturating okay. Otherwise ambulating okay. Hemodynamics okay currently. He has CPAP and uses it daily while sleeping per patient. Past medical history. As mentioned above Past surgical history. Lumbar epidural implant. Social history. . No smoking. No alcohol use. No drug use. Family history. Father had diabetes. Father had multiple MIs at least 7 stents. Mother had stress-induced NC. Allergies Allergy/AdvReac Type Severity Reaction Status Date / Time No Known Allergies Allergy Unverified 09/07/19 10:33 Home Medications Medication Instructions Recorded Confirmed Type aspirin 81 mg tablet,delayed 81 mg PO DAILY 08/09/24 08/09/24 History release atorvastatin 20 mg tablet 20 mg PO HS 08/09/24 08/09/24 History fenofibrate 54 mg tablet 54 mg PO DAILY 08/09/24 08/09/24 History lisinopril 10 1 tab PO DAILY 08/09/24 08/09/24 History mg-hydrochlorothiazide 12.5 mg tablet Past Med/Surg History Problem List (Updated 08/09/24 @ 22:45 by Ever Sullivan DO) Near syncope (Acute) AV junctional bradycardia (Acute) Chest pain (Acute) Chest pain High cholesterol Hypertension Syncope (Acute) Bradycardia (Acute) Influenza A (Acute) Surgical History No significant past surgical history Family History Father Myocardial infarction Heart disease Social History Smoking Status: Never smoker Do You Dip or Chew Tobacco: No; Hx Alcohol Use: No Hx Substance Use: No Preferred Language: Kazakh Communication Ability: Effective Fabric 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 Lungs- clear to auscultation no wheezing or crackles. Heart- regular rate and rhythm; no murmur, no gallop. Abdomen- normal bowel sounds, soft, nontender, no distension Extremities- no pretibial edema, no erythema seen Neuro- alert, oriented; PERRL, EOMI; no facial palsy; no dysarthria; moves extremities. Results & Data Results & Data Vital Signs (Past 12 Hours) Vital Signs Temp Pulse Resp BP Pulse Ox O2 Del Method 08/09/24 19:06 80 08/09/24 19:02 98 Room Air 08/09/24 18:45 98 Room Air 08/09/24 18:45 36.8 C 79 18 170/105 H 98 Room Air Diagnostic Findings Laboratory Results WBC 10.85 K/ul (4.8-10.8) H 08/09/24 18:45 RBC 4.99 M/uL (4.70-6.10) 08/09/24 18:45 Hgb 15.4 g/dl (14.0-18.0) 08/09/24 18:45 Hct 43.3 % (42.0-52.0) 08/09/24 18:45 MCV 86.8 fL (80.0-100.0) 08/09/24 18:45 MCH 30.9 pg (25.0-34.0) 08/09/24 18:45 MCHC 35.6 g/dL (32.0-36.0) 08/09/24 18:45 RDW Std Deviation 40.2 fL (36.4-46.3) 08/09/24 18:45 RDW Coeff of Khalida 12.8 % (11.5-14.5) 08/09/24 18:45 Plt Count 216 K/uL (130-400) 08/09/24 18:45 MPV 11.4 fL (9.4-12.4) 08/09/24 18:45 Immature Gran % (Auto) 0.5 % 08/09/24 18:45 Neut % (Auto) 79.5 % 08/09/24 18:45 Lymph % (Auto) 12.0 % 08/09/24 18:45 [place] % (Auto) 6.3 % 08/09/24 18:45 Eos % (Auto) 1.3 % 08/09/24 18:45 Baso % (Auto) 0.4 % 08/09/24 18:45 Neut # (Auto) 8.64 K/uL (1.40-6.50) H 08/09/24 18:45 Lymph # (Auto) 1.30 K/uL (1.20-3.40) 08/09/24 18:45 [place] # (Auto) 0.68 K/uL (0.11-0.59) H 08/09/24 18:45 Eos # (Auto) 0.14 K/uL (0.00-0.50) 08/09/24 18:45 Baso # (Auto) 0.04 K/uL (0.00-0.20) 08/09/24 18:45 Immature Gran # (Auto) 0.05 K/uL (0.01-0.20) 08/09/24 18:45 PT 10.8 Seconds (9.0-12.0) 08/09/24 18:45 INR 1.0 (0.9-1.1) 08/09/24 18:45 APTT 26 Seconds (21-31) 08/09/24 18:45 PTT Ratio 1.0 08/09/24 18:45 D-Dimer 320 ug/L FEU (0-500) 08/09/24 18:45 Sodium 137 mmol/L (136-145) 08/09/24 18:45 Potassium 3.6 mmol/L (3.5-5.1) 08/09/24 18:45 Chloride 104 mmol/L (98-107) 08/09/24 18:45 Carbon Dioxide 26 mmol/L (21-32) 08/09/24 18:45 Anion Gap 7 (3-11) 08/09/24 18:45 BUN 23 mg/dl (6-23) 08/09/24 18:45 Creatinine 1.26 mg/dl (0.6-1.4) 08/09/24 18:45 Est Cr Clr Drug Dosing 82.0 ml/min 08/09/24 18:45 eGFR 64.89 08/09/24 18:45 BUN/Creatinine Ratio 18.3 (10-20) 08/09/24 18:45 Glucose 103 mg/dl (70-99(Fasting)) H 08/09/24 18:45 Calcium 9.3 mg/dl (8.6-10.3) 08/09/24 18:45 Total Bilirubin 0.4 mg/dl (0.2-1.0) 08/09/24 18:45 AST 19 U/L (13-39) 08/09/24 18:45 ALT 21 U/L (7-52) 08/09/24 18:45 Alkaline Phosphatase 52 U/L (34-104) 08/09/24 18:45 Troponin I High Sens 5.5 pg/ml (0-20) 08/09/24 18:45 Total Protein 7.1 gm/dl (6.0-8.3) 08/09/24 18:45 Albumin 4.4 gm/dl (3.4-5.0) 08/09/24 18:45 Globulin 2.7 gm/dl (2.5-4.0) 08/09/24 18:45 Albumin/Globulin Ratio 1.6 (0.9-2) 08/09/24 18:45 Lipase 19 U/L (11-82) 08/09/24 18:45 Lyme Disease Screen Negative (Negative) 08/09/24 18:45 Impressions Chest X-Ray 08/09/24 18:46 Exam(s): XR CXR 1 VIEW EXAM: XR Chest, 1 View CLINICAL HISTORY: Reason for exam: Chest pain, nonspecific. TECHNIQUE: Frontal view of the chest. COMPARISON: September 07, 2019 FINDINGS: Lungs: Small amount of left lung base subsegmental atelectasis. The lungs are otherwise clear. Pleural space: Unremarkable. No pneumothorax. Heart: Unremarkable. No cardiomegaly. Mediastinum: Unremarkable. Normal mediastinal contour. Bones/joints: Mild osteophytosis throughout the mid to lower thoracic spine. No acute fracture. Tubes, lines and devices: There is a spinal stimulating lead in place. Upper abdomen: There is no pneumoperitoneum under the diaphragm. IMPRESSION: Small amount of left lung base subsegmental atelectasis. The lungs are otherwise clear. Electronically signed by: Nilay Lugo MD 08/09/24 21:02 PM ECG Additional Comments: CC. Idioventricular rhythm. Rate 38. Right bundle branch block. QTc 348 Code Status & VTE Plan VTE Prophylaxis Plan VTE Prophylaxis will be ordered: Yes
[2024-08-09] MEDS ORDERED: NITROGLYCERIN SL 0.4 MG/TAB TAB SL PRN (23:26)
[2024-08-09] MEDS ORDERED: ACETAMINOPHEN 325 MG TAB PO PRN (23:26)
[2024-08-09] MEDS ORDERED: POLYETHYLENE (MIRALAX) 17 GM PACK PO PRN (23:26)
[2024-08-10 06:39] LABS: Basophils # (auto) 0.02 K/uL (0.00-0.20); Basophils % (auto) 0.3 %; Eosinophils # (auto) 0.14 K/uL (0.00-0.50); Eosinophils % (auto) 1.8 %; Hematocrit (blood only) 41.8 % (42.0-52.0); Hemoglobin 14.4 g/dl (14.0-18.0); Immature Granulocytes # (auto) 0.02 K/uL (0.01-0.20); Immature Granulocytes % (auto) 0.3 %; Mean Corpuscular Hemoglobin 30.2 pg (25.0-34.0); Mean Corpuscular Hgb Conc 34.4 g/dL (32.0-36.0); Mean Corpuscular Volume 87.6 fL (80.0-100.0); Mean Platelet Volume 11.5 fL (9.4-12.4); Monocytes # (auto) 0.66 K/uL (0.11-0.59); Monocytes % (auto) 8.3 %; Neutrophils # (auto) 5.57 K/uL (1.40-6.50); Neutrophils % (auto) 70.3 %; Platelet Count 189 K/uL (130-400); RDW Standard Deviation 41.8 fL (36.4-46.3); Red Blood Count 4.77 M/uL (4.70-6.10); White Blood Count 7.91 K/ul (4.8-10.8)
[2024-08-10 06:56] LABS: BUN Creatinine Ratio 16.2 (10-20); Chol HDL Ratio 4.6 (0-5); Creatinine Clr Calc Pharmacy 91.9 ml/min; Magnesium 1.9 mg/dl (1.7-2.4); Potassium 3.5 mmol/L (3.5-5.1)
[2024-08-10 07:02] LABS: Troponin I High Sensitivity 3.4 pg/ml (0-20)
[2024-08-10 07:52] VITALS: BP 134/86; RESP 16; TEMP 97.7; O2SAT 98
[2024-08-10] MEDS: ASPIRIN 81 MG ECTAB PO SCH (08:12)
[2024-08-10] MEDS: LISINOPRIL/HCTZ 10/12.5MG TAB PO SCH (08:12)
--- NOTE | 2024-08-10 08:21 | Cardiology Consultation ---
Date of Consultation August 10, 2024 Assessment & Plan (1) AV junctional bradycardia: (2) Near syncope: (3) Chest pain: (4) High cholesterol: (5) Hypertension: Plan Case has been discussed with Dr. Ovalle. Further recommendations regarding plan of care as per his assessment. I spent a total of 40 minutes on the date of service in preparation, delivery, documentation of the care provided to the patient excluding any time spent in the performance of separately billed services. YASMIN Solomon [facility] Cardiology [facility] Supervising Physician Co-Signing Physician Notes Attending Staff: Pt seen and evaluated with AP Staff Concur with observations and plans 59 yo man presenting with right-sided chest pain, diaphoresis and near syncope EMS 4 baby ASA Initial EKG: Sinus, RBBB, Inferior FL (old) - No Patient noted to have sudden bradycardia EKG - junctional rhythm - rate of 40 BPM - no active ischemic changes K+ 3.6 Mag 1.9 Troponin WNL x 3 TSH - Pending Lyme - Pending Tox - Pending Pt is not on AV janiya blocking agents Med Hx: HTN Hyperlipidemia LDL 106 RICK on CPAP Plan: * On detailed hx, patient experienced bradycardia several minutes post Morphine injection * Morphine was given in response to infrascapular pain * No bradycardia overnight * No pauses on telemetry * Other than obesity, no major abnormalities on exam * Suspect patient had a vagal type event post Morphine administration * Lyme Neg * TSH - Pending * No major electrolyte abnormalities * Last syncopal episode in Sep 2019 in the setting of influenza A * ECHO pending * Stress ECHO - 2019 - no evidence of ischemia * K+ goal 4.5-5 * Kdur 40 meq po x 1 * Magnesium Oxide - 400 mg po per day * Zio Patch as an outpt * RUQ US as an outpt - question of gallbladder disease as the cause of right infrascapular pain * Continue ASA 81 mg po per day * Continue Lipitor 20 mg po per day * SBP 134 * Lisinopril/HCTZ 10/12.5 mg po per day * On fenofibrate * Check CPK Richard Ovalle History of Present Illness Reason for Consultation: chest pain, near syncope and bradycadia Requesting Physician: [facility] hospitalist Attending Physician: Obdulio Townsend MD History of Present Illness HPI: Patient is a 59 year old male with PMHx significant for HTN, RICK on CPAP, and HLD presents to the ER on 08/09/2024 with Right-sided chest pain. Initially thought it was muscle pain, but felt that it moved from his mid-sternal region to his right anterior chest wall with associated flushing, diaphoresis, and near syncope prompting him to present for evaluation. He was given 4 baby ASA in route to the ER by EMS, and was noted to be bradycardic in the ER subsequently given atropine. Patient's home meds include ASA 81mg, Atorvastatin, Fenofibrate, and Lisinopril/HCTZ. Not on any AV Janiya blocking agents. Initial EKG NSR, right BBB, T wave abnormality in lateral leads Rate 87bpm EKG during bradycardic episode demonstrates an idoventricular rhythm with Right BBB, Rate 38bpm EKG this AM: NSR Right BBB, possible prior inferior infarct Rate 63bpm Troponin negative x3. LDL 106 Chest x-ray: IMPRESSION: Small amount of left lung base subsegmental atelectasis. The lungs are otherwise clear. Echocardiogram pending Allergies Allergy/AdvReac Type Severity Reaction Status Date / Time No Known Allergies Allergy Unverified 09/07/19 10:33 Home Medications Medication Instructions Recorded Confirmed Type aspirin 81 mg tablet,delayed 81 mg PO DAILY 08/09/24 08/09/24 History release atorvastatin 20 mg tablet 20 mg PO HS 08/09/24 08/09/24 History fenofibrate 54 mg tablet 54 mg PO DAILY 08/09/24 08/09/24 History lisinopril 10 1 tab PO DAILY 08/09/24 08/09/24 History mg-hydrochlorothiazide 12.5 mg tablet Patient History Surgical History No significant past surgical history Family History Father Myocardial infarction Heart disease Social History Smoking Status: Never smoker Do You Dip or Chew Tobacco: No; Hx Alcohol Use: No Hx Substance Use: No Preferred Language: Mohawk Communication Ability: Effective Revenue Enforcement Agent Required: No Beliefs That Will Affect Care: None Current Living Situation: Spouse Other Information That Helps Us Care for You: No Feels Safe at Home: Yes Safety Concerns: Feels Safe At This Time Assistive Devices: CPAP Physical Exam Physical Exam: Obese no elevation in JVP S1S2 CTA B No C/C/E Warm and well-perfused No RUQ pain No reproducible pain - right infrascapular region Results & Data Vital Signs (Past 12 Hours) Vital Signs Temp Pulse Pulse Pulse Resp BP BP 08/10/24 07:51 36.5 C 78 60 16 134/86 08/10/24 03:01 36.6 C 58 L 18 127/82 08/09/24 23:50 78 08/09/24 23:33 36.5 C 72 18 166/106 H 08/09/24 23:00 72 18 140/91 08/09/24 22:54 75 08/09/24 22:30 69 18 135/83 08/09/24 22:00 76 22 131/85 08/09/24 21:30 82 22 146/91 H 08/09/24 21:20 81 18 136/90 08/09/24 21:10 80 18 136/83 08/09/24 21:00 82 20 140/89 08/09/24 20:55 81 18 138/89 08/09/24 20:40 81 18 145/92 H 08/09/24 20:30 86 18 135/96 Pulse Ox O2 Del Method O2 Flow Rate 08/10/24 07:51 98 Room Air 08/10/24 03:01 95 Room Air 08/09/24 23:50 08/09/24 23:33 94 Room Air 08/09/24 23:00 96 Room Air 08/09/24 22:54 08/09/24 22:30 94 08/09/24 22:00 94 Nasal Cannula 1 08/09/24 21:30 95 Nasal Cannula 1 08/09/24 21:20 94 Nasal Cannula 1 08/09/24 21:10 94 Nasal Cannula 1 08/09/24 21:00 94 Nasal Cannula 1 08/09/24 20:55 94 Nasal Cannula 1 08/09/24 20:40 95 08/09/24 20:30 96 Nasal Cannula 1 Laboratory Results Cardiac Enzymes 08/09/24 08/09/24 08/10/24 Range/Units 18:45 21:16 05:46 AST 19 (13-39) U/L Troponin I High Sens 5.5 3.2 3.4 (0-20) pg/ml Coagulation 08/09/24 Range/Units 18:45 PT 10.8 (9.0-12.0) Seconds APTT 26 (21-31) Seconds Lipids 08/10/24 Range/Units 05:46 Triglycerides 119 (0-150) mg/dl Cholesterol 166 (0-200) mg/dl HDL Cholesterol 36 mg/dl Cholesterol/HDL Ratio 4.6 (0-5) CBC 08/09/24 08/10/24 Range/Units 18:45 05:46 WBC 10.85 H 7.91 (4.8-10.8) K/ul RBC 4.99 4.77 (4.70-6.10) M/uL Hgb 15.4 14.4 (14.0-18.0) g/dl Hct 43.3 41.8 L (42.0-52.0) % Plt Count 216 189 (130-400) K/uL Neut # (Auto) 8.64 H 5.57 (1.40-6.50) K/uL Lymph # (Auto) 1.30 1.50 (1.20-3.40) K/uL Bee # (Auto) 0.68 H 0.66 H (0.11-0.59) K/uL Eos # (Auto) 0.14 0.14 (0.00-0.50) K/uL Baso # (Auto) 0.04 0.02 (0.00-0.20) K/uL Comprehensive Metabolic Panel 08/09/24 08/10/24 Range/Units 18:45 05:46 Sodium 137 140 (136-145) mmol/L Potassium 3.6 3.5 (3.5-5.1) mmol/L Chloride 104 105 (98-107) mmol/L Carbon Dioxide 26 28 (21-32) mmol/L BUN 23 18 (6-23) mg/dl Creatinine 1.26 1.11 (0.6-1.4) mg/dl Glucose 103 H 94 (70-99(Fasting)) mg/dl Calcium 9.3 9.0 (8.6-10.3) mg/dl AST 19 (13-39) U/L ALT 21 (7-52) U/L Alkaline Phosphatase 52 (34-104) U/L Total Protein 7.1 (6.0-8.3) gm/dl Albumin 4.4 (3.4-5.0) gm/dl Intake and Output 08/09/24 08/10/24 08/10/24 22:59 06:59 14:59 Intake Total 500 / 500 0 / 500 Balance 500 / 500 0 / 500 Intake: IV 500 / 500 Sodium Chloride 0.9% 500 ml @ 500 / 500 999 mls/hr IV .Q31M ONE Rx#: [id number] Oral 0 / 0 Other: Other Intake Source NPO # Unmeasured Voids 1 Weight 119 kg 116 kg Weight Measurement Method Built in [facility] (3) Chest pain Chest pain type: unspecified Qualified Code(s): R07.9 - Chest pain, unspecified
[2024-08-10 09:06] LABS: Appearance Urine Cloudy (Clear); Bacteria Urine Automated 3+ (None Seen); Bilirubin Urine Negative (Negative); Blood Urine 2+ (Negative); Color Urine Yellow; Epithelial Cell Urine Auto 0-2 /hpf (0-2); Glucose Urine UA Negative (Negative); Ketones Urine Negative (Negative); Leukocyte Esterase Urine Negative (Negative); Nitrite Urine Negative (Negative); Protein Urine 2+ (Negative); Specific Gravity Urine 1.016 (1.000-1.030); Urobilinogen Urine Negative (Negative); WBC Urine Automated >50 /hpf (0-5)
[2024-08-10 09:24] LABS: Amphetamines+Metham, Urine Neg (Neg); Barbiturates, Urine Neg (Neg); Benzodiazepine, Urine Neg (Neg); Cocaine, Urine Neg (Neg); Fentanyl, Urine Neg (Neg); MDMA (Ecstacy), Urine Neg (Neg); Marijuana, Urine Neg (Neg); Methadone, Urine Neg (Neg); Opiate, Urine Pos (Neg); Phencyclidine, Urine Neg (Neg)
[2024-08-10] MEDS: POTASSIUM CHLORIDE CRTAB 20 MEQ TABCR PO ONE (10:53)
[2024-08-10 11:56] LABS: Troponin I High Sensitivity 4.1 pg/ml (0-20)
[2024-08-10 12:06] LABS: Thyroid Stimulating Hormone 1.429 uIu/ml (0.300-4.500)
--- NOTE | 2024-08-10 14:19 | Discharge Summary ---
Date of Service August 10, 2024 Admission HPI Per Admitting Provider 59-year-old male with past medical history significant for hypertension hyperlipidemia presents with right-sided chest pain and near syncope. Patient initially noticed pain in the back of his right side. Initially thought it was a muscle pain. But the pain moved to the front part of the right side of the chest. It was 5/10 in severity. And he felt hot and thought he was sweating and felt like passing out when he called EMS and came to the hospital. Prior to coming to the hospital took 4 baby aspirin's. In the ER also had episode where he became diaphoretic and felt like passing out and he was having bradycardia. Er gave atropine.. Currently resting comfortably. Patient's pain is improved currently. Denies any headache. During the episode felt dizziness. Vision is okay. No headache or runny nose currently. No sore throat. No difficulty swallowing. Eating and drinking okay. Currently no nausea. No abdominal pain. Normal bowel and bladder movements. Micturating okay. Otherwise ambulating okay. Hemodynamics okay currently. He has CPAP and uses it daily while sleeping per patient. Past medical history. As mentioned above Past surgical history. Lumbar epidural implant. Social history. . No smoking. No alcohol use. No drug use. Family history. Father had diabetes. Father had multiple MIs at least 7 stents. Mother had stress-induced FL. Admission Exam Per Admitting Provider General-Not in acute distress Head- atraumatic Eyes- PERRL, EOMI ENT- oropharynx clear Neck- supple, no JVD. Lungs- clear to auscultation no wheezing or crackles. Heart- regular rate and rhythm; no murmur, no gallop. Abdomen- normal bowel sounds, soft, nontender, no distension Extremities- no pretibial edema, no erythema seen Neuro- alert, oriented; PERRL, EOMI; no facial palsy; no dysarthria; moves extremities. Principal Diagnosis Right-sided chest pain, ruled out ACS Discharge Exam General-Not in acute distress Head- atraumatic Eyes- PERRL, EOMI ENT- oropharynx clear Neck- supple, no JVD. Lungs- clear to auscultation no wheezing or crackles. Heart- regular rate and rhythm; no murmur, no gallop. Abdomen- normal bowel sounds, soft, nontender, no distension Extremities- no pretibial edema, no erythema seen Neuro- alert, oriented; PERRL, EOMI; no facial palsy; no dysarthria; moves extremities. Discharge Data Allergies Allergy/AdvReac Type Severity Reaction Status Date / Time No Known Allergies Allergy Unverified 09/07/19 10:33 Consultations 08/09/24 19:42 ED Decision to Admit Stat 08/10/24 08:00 Consult Cardiology Routine Hospital Course (1) Chest pain: Per prior attending with addendum: 59-year-old male with past medical history significant for hypertension hyperlipidemia presents with right-sided chest pain and near syncope. Patient initially noticed pain in the back of his right side. Initially thought it was a muscle pain. But the pain moved to the front part of the right side of the chest. It was 5/10 in severity. And he felt hot and thought he was sweating and felt like passing out when he called EMS and came to the hospital. Prior to coming to the hospital took 4 baby aspirin's. In the ER also had episode where he became diaphoretic and felt like passing out and he was having bradycardia. Er gave atropine.. Currently resting comfortably. Patient's pain is improved currently. Denies any headache. During the episode felt dizziness. Vision is okay. No headache or runny nose currently. No sore throat. No difficulty swallowing. Eating and drinking okay. Currently no nausea. No abdominal pain. Normal bowel and bladder movements. Micturating okay. Otherwise ambulating okay. Hemodynamics okay currently. He has CPAP and uses it daily while sleeping per patient. Chest pain Right-sided chest pain Initial troponin negative D-dimer negative Will follow serial cardiac enzymes and echo Monitor on telemetry Continue home aspirin Cardiology consult in a.m. for further recommendations Bradycardia Near syncope junctional bradycardia with near syncope in Er. Received atropine Currently heart rates ok and hemodynamics ok. troponin two sets ok, D dimer negative.Lyme screen negative Closely monitoring telemetry Echo Cardiology consulted in a.m. for further recommendations Hypertension Lisinopril hydrochlorothiazide Will monitor Hyperlipidemia On atorvastatin and fenofibrate Will follow lipid profile given Sleep apnea on cpap q hs DVT prophylaxis SCDs for now Disposition Telemetry Full code. Addendum 08/10/2024: Patient was seen and examined at bedside as a follow-up of right-sided chest pain, rule out ACS and near syncope secondary to AV junctional bradycardia. Troponin x 4 negative. EKG without acute ST or T changes. Echo with EF of 60 to 65%, no wall motion abnormality noted. Discussed with cardiology, the near syncope event is likely vagal type event post morphine injection. Patient to follow-up with PCP office to set up Zio patch monitoring and right upper quadrant ultrasound. During bedside exam, patient denied any fever/chills/cough/palpitation/abdominal pain/nausea/vomiting/diarrhea/pain or burning while passing urine. He is being discharged to home with following instruction at the point of discharge: Follow-up with your primary care physician within a week time and likely you will need labs CBC/CMP/magnesium/phosphorus. Cardiology evaluated you for your right-sided chest pain and concern of decreased heart rate. You will benefit from outpatient Zio patch monitoring, coordinate with your cardiology office to set up the test. Given right upper back pain, you will will benefit from getting right upper belly ultrasound to rule out gallbladder disease. Coordinate with your PCP office to set up the test. Take your medications as prescribed. Please make sure that you are able to get your medications today by calling your pharmacy before you leave the hospital so that your treatment continuity is not broken. Home Health Attestation I certify that this patient is under my care and that I, or a physicians assistant professor of geography working with me, had a face to-face encounter that meets the home health [id number] encounter requirements with this patient. The encounter with the patient was in whole, or in part, for the following medical condition, which is the primary reason for home health care (list medical condition): I certify that, based on my findings, the following services are medically necessary home health services: My clinical findings support the need for the above services because: Further, I certify that my clinical findings support that this patient is homebound (i.e. absences from home require considerable and taxing effort and are for medical reasons or gnosticist services or infrequently or of short duration when for other reasons) because: Certification for Home Health Services: Based on the above findings, I certify that this patient is confined to the home and needs intermittent custodial care, physical therapy and/or speech therapy or continues to need occupational therapy. The patient is under my care, and I have initiated the establishment of the plan of care. This patient will be followed by a physician who will periodically review the plan of care. Total Time Total Time Spent Total Time Spent (In Minutes): 45 Discharge Plan Discharge Items Patient Disposition: Home - Self-Care Reason For Visit: CHEST PAIN, NEAR SYNCOPE, BRADYCARDIA Discharge Diagnosis: Right-sided chest and back pain AV junctional bradycardia Near syncope at ED, likely vagal event after morphine injection Activity: Resume your previous activity Non-emergency contact: Primary Care Provider Call non-emergency contact if: you have any medication questions and your symptoms worsen Follow-up/Referrals: Hai Garrison [Primary Care Provider] - Diet: Heart Healthy Addtl Attending Provider Instructions: Follow-up with your primary care physician within a week time and likely you will need labs CBC/CMP/magnesium/phosphorus. Cardiology evaluated you for your right-sided chest pain and concern of decreased heart rate. You will benefit from outpatient Zio patch monitoring, coordinate with your cardiology office to set up the test. Given right upper back pain, you will will benefit from getting right upper belly ultrasound to rule out gallbladder disease. Coordinate with your PCP office to set up the test. Take your medications as prescribed. Please make sure that you are able to get your medications today by calling your pharmacy before you leave the hospital so that your treatment continuity is not broken. Pending Studies at Discharge: Yes Stand-Alone Forms: My [facility] Zuu Onlnine, Smoking Cessation Medications and DC Order Prescriptions: Continued atorvastatin 20 mg tablet 20 mg PO HS lisinopril-hydrochlorothiazide 10-12.5 mg tablet 1 tab PO DAILY fenofibrate 54 mg tablet 54 mg PO DAILY aspirin 81 mg Tablet,Delayed Release (Dr/Ec) 81 mg PO DAILY Discharge Orders: Discharge Order (Routine); Ordered 08/10/24 Ordered By: Obdulio Townsend Admission Data Admit Date/Time: 08/09/24 20:43 Attending Provider: Obdulio Townsend Admit Provider: Osmel Gordon Primary Care Provider: Hai Garrison Other Providers: Luke Arriaza; Osmel Gordon
[2024-08-10 14:25] VITALS: PULSE 78
--- NOTE | 2024-08-10 15:03 | Electrocardiogram Report ---
Test Reason : Blood Pressure : */* mmHG Vent. Rate : 87 BPM Atrial Rate : 87 BPM P-R Int : 160 ms QRS Dur : 150 ms QT Int : 396 ms P-R-T Axes : 48 9 -6 degrees QTcB Int : 476 ms Normal sinus rhythm Right bundle branch block Inferior infarct (cited on or before 09-Sep-2019) T wave abnormality, consider lateral ischemia Abnormal ECG When compared with ECG of 09-Sep-2019 06:59, Right bundle branch block is now Present Confirmed by Ever Butler ([id number]) on 08/10/2024 3:02:50 PM Referred By: REFERRED SELF Confirmed By: Ever Butler
--- NOTE | 2024-08-10 15:04 | Electrocardiogram Report ---
Test Reason : Blood Pressure : */* mmHG Vent. Rate : 38 BPM Atrial Rate : * BPM P-R Int : * ms QRS Dur : 158 ms QT Int : 438 ms P-R-T Axes : * 16 16 degrees QTcB Int : 348 ms Idioventricular rhythm Right bundle branch block Cannot rule out Inferior infarct , age undetermined Abnormal ECG When compared with ECG of 09-Aug-2024 18:44, (unconfirmed) Significant changes have occurred Confirmed by Ever Butler ([id number]) on 08/10/2024 3:04:41 PM Referred By: REFERRED SELF Confirmed By: Ever Butler
--- NOTE | 2024-08-10 15:14 | Electrocardiogram Report ---
Test Reason : Blood Pressure : */* mmHG Vent. Rate : 63 BPM Atrial Rate : 63 BPM P-R Int : 144 ms QRS Dur : 162 ms QT Int : 426 ms P-R-T Axes : 38 5 -6 degrees QTcB Int : 435 ms Normal sinus rhythm Right bundle branch block Inferior infarct , age undetermined Abnormal ECG When compared with ECG of 09-Aug-2024 19:33, (unconfirmed) Sinus rhythm has replaced Idioventricular rhythm Vent. rate has increased by 25 bpm Confirmed by Ever Butler ([id number]) on 08/10/2024 3:14:06 PM Referred By: REFERRED SELF Confirmed By: Ever Butler
[2024-08-10] MEDS ORDERED: ATORVASTATIN 20 MG TAB PO SCH (21:00)
[2024-08-11] MEDS ORDERED: MAGNESIUM OXIDE 400 MG TAB PO SCH (09:00)
--- OUTSIDE RECORDS SUMMARY | 2024-08-12 14:35 | External Medical Summary | Summary of Care ---
Author Name Unknown Organization [facility] Address [address] [place] [address] Phone [phone] Care Team Providers Care Sash Sticker Name Role Phone Hai Garrison PA-C Primary Care Provider [phone] Encounter Details Date Type Department Care Team ([facility] st Contact Info) Description 08/08/2024 Orders Only Laboratory [address] [place] [id number] Hai Garrison PA-C [address] [place] [id number] HTN, goal below 140/90*; Dyslipidemia, goal LDL below 160; Blood glucose elevated; Screening for prostate cancer Allergies No known active allergiesdocumented as of this encounter (statuses as of 08/08/2024) Medications fenofibrate (LOFIBRA) 54 MG Tablet Take 1 Tablet by mouth every evening. 1 7 Active Aspirin 81 MG Tablet Take 1 Tablet by mouth in the morning. Active Multiple Vitamins-Minerals (MULTIVITAMIN MEN) TABS Take 1 Tab by mouth daily. Active Cholecalciferol (VITAMIN D3) 5000 UNITS Tablet Take 1 Capsule by mouth in the morning. Active Lisinopril-Hydroc hlorothiazide 10-12.5 MG per tabletIndications :Essential hypertension with goal blood pressure less than 140/90 TAKE 1 TAB BY MOUTH DAILY. 90 Tab 1 7 Active fluticasone (FLONASE) 50 MCG/ACT nasal spray Administer 2 Sprays into each nostril in the morning. 5 9 Active cetirizine (ZYRTEC) 10 MG Tablet Take 0.5 Tablets by mouth at bedtime. Active Zinc Extra Strength 16.67 MG Oral Tablet Chewable (Zinc Citrate) Take 3 Each by mouth daily. Active Atorvastatin Calcium 20 MG Oral Tablet (Lipitor)Indicati ons:Hyperlipidemi a with target LDL less than 130 TAKE 1 TABLET BY MOUTH EVERYDAY AT BEDTIME 90 Tablet 3 4 Active documented as of this encounter (statuses as of 08/08/2024) Active Problems Problem Noted Date Diagnosed Date Rotator cuff tendonitis 04/24/2015 Hyperlipidemia with target LDL less than 130 04/2014 Overview (01/06/2016): TRIG 172, CHOL 232, HDL 40 NON HDL 192, LDL 158 ICD-10 update of inactive term Essential hypertension with goal blood pressure less than 140/90 BMI 32.0-32.9,adult documented as of this encounter (statuses as of 08/08/2024) Resolved Problems Problem Noted Date Diagnosed Date Resolved Date Other specified disorders of rotator cuff syndrome of shoulder and allied disorders 09/20/2014 04/24/2015 Overview (03/14/2015): right rotator cuff tendonitis documented as of this encounter (statuses as of 08/08/2024) Immunizations Name Administration Dates Next Due TDAP (age 10 and older)(Boostrix) 09/18/2015 documented as of this encounter Social History Tobacco Use Types Packs/Day Years Used Date Smoking Tobacco: Never Smokeless Tobacco: Never Alcohol Use Standard Drinks/Week Comments Not Currently 0 (1 standard drink = 0.6 oz pur e alcohol) Utilities Answer Date Recorded Do you have trouble paying y our heating, water, or electric bill? (Adult - for ages 18 years and over) Not on file 02/22/2024 Is your family able to pay t he heat, water, or electric bill? (Household - for ages 0-17 years) Not on file 02/22/2024 Does your family have access to good internet? (Household - for ages 0-17 years) Not on file 02/22/2024 Social Connections Answer Date Recorded How often do you feel lonely or isolated from those around you? (Adult - for ages 18 years and over) Not on file 02/22/2024 Sex and Gender Information Value Date Recorded Sex Assigned at Not on file Legal Sex Male 6:10 AM EST Gender Identity Not on file Sexual Orientation Not on file documented as of this encounter Plan of Treatment Upcoming Encounters Date Type Department Care Team (Late st Contact Info) Description 09/26/2024 11:30 AM EST Office Visit Cardiology [address] [place] [phone] Luke Arriaza PA-C [address] [place] [address] Scheduled Orders Name Type Priority Associated Diagnoses Orde r Schedule COMPREHENSIVE METABOLIC PANEL Lab Routine HTN, goal below 140/90 Dyslipidemia, goal LDL below 160 Expected: 08/08/2024, Expires: 08/08/2025 CBC WITH WBC DIFFERENTIAL Lab Routine HTN, goal below 140/90 Dyslipidemia, goal LDL below 160 Expected: 08/08/2024, Expires: 08/08/2025 LIPID PANEL WITH DIRECT LDL IF TG IS HIGH Lab Routine HTN, goal below 140/90 Dyslipidemia, goal LDL below 160 Expected: 08/08/2024, Expires: 08/08/2025 URINALYSIS, REFLEX TO MICROSCOPIC Lab Routine HTN, goal below 140/90 Dyslipidemia, goal LDL below 160 Expected: 08/08/2024, Expires: 08/08/2025 HEMOGLOBIN A1C Lab Routine Blood glucose elevated Expected: 08/08/2024, Expires: 08/08/2025 PSA Lab Routine Screening for prostate cancer Expected: 08/08/2024, Expires: 08/08/2025 Health Maintenance Due Date Last Done Comments Albumin/Creatinine Ratio 1981 Cologuard 02/15/2008 Colonoscopy 02/15/2008 Colorectal Cancer Screening 02/15/2008 Fecal Occult Blood Test 02/15/2008 Sigmoidoscopy 02/15/2008 Zoster Vaccines (1 of 2) 2013 Depression Screening 09/21/2015 09/21/2014 GFR 04/27/2024 04/27/2023, 09/0 09/2021, 05/09/2019, Additional history exists COVID-19 Vaccine (1 - 2023-25 season) 2024 Influenza Vaccine (FLU shot) (#1) 2024 DTap/Tdap Vaccines (2 - Td or Tdap) 09/18/2025 09/18/2015 Diabetes Screening 04/27/2026 04/27/2023, 0 04/27/2023, 05/07/2022, Additional history exists Lipid Panel 04/27/2028 04/27/2023, 04/07, 05/07/2022, Additional history exists HPV (Gardasil) Vaccine Aged Out No lo nger eligible based on patient's age to complete this topic Hepatitis B Vaccine Aged Out No longe r eligible based on patient's age to complete this topic MENINGOCOCCAL (MENACTRA/MENVEO) Aged Out No longer eligible based on patient's age to complete this topic Pneumococcal Vaccine: Pediatrics (0 to 5 Years) and At-Risk Patients (6 to 64 Years) Aged Out No longer eligible based on patient's age to complete this topic documented as of this encounter Medical Devices Not on filedocumented as of this encounter Visit Diagnoses Diagnosis HTN, goal below 140/90- Primary Unspecified essential hypertension Dyslipidemia, goal LDL below 160 Other and unspecified hyperlipidemia Blood glucose elevated Other abnormal glucose Screening for prostate cancer Special screening for malignant neoplasm of prostate documented in this encounter Care Teams Sash Sticker Relationship Specialty Start Date End Date Hai Garrison, LUCIANAC [address] [place] [phone] PCP - General Physician Refrigeration Mechanic Helper 09/22/16 documented as of this encounter
[2024-08-12 15:23] LABS: Codeine Urine NEGATIVE ng/mL (<50); Hydrocodone Urine NEGATIVE ng/mL (<50); Hydromor Urine NEGATIVE ng/mL (<50); Morphine Urine 957 ng/mL (<50); Norhydrocodone Conf Ur NEGATIVE ng/mL (<50); Noroxycodone Urine NEGATIVE ng/mL (<50); Oxycodone Urine NEGATIVE ng/mL (<50); Oxymorph Urine NEGATIVE ng/mL (<50)
== END 2024-08-10 15:39 | disposition home or self-care (01) | DRG 313 ==
LOC: ED 18:38 → 2S 20:43